=== PATIENT | male | born 1950 | race Caucasian/White ===

== ENCOUNTER 2023-09-24 00:21 | Day surgery (SDC) | payer MEDICARE, OTHER, SELFPAY ==
[2023-09-13 09:45] VITALS: BMI 30.8
--- NOTE | 2023-09-20 12:11 | SUR.PREOP ---
Patient called regarding upcoming procedure. Reviewed preop instructions, appointment times, and procedure prep. pt states he didn't receive instructions so he called the office and is to go there to get instructions.
--- NOTE | 2023-09-20 15:47 | PM.HPGS ---
History of Present Illness History of Present Illness Consent: Risks, benefits, and alternatives have been discussed and questions answered. Patient agrees to proceed with procedure. Chief complaint: Unspecified abdominal pain Narrative: Eran Avila is a 72 year old male referred for colonoscopy due to persistent abdominal discomfort, And an abnormal CT scan. We do not have the actual report on that scan. He also has history of colon polyps. Review of Systems Review of Systems: All systems reviewed & are unremarkable except as noted in HPI and below PMFSH Social History Social History Smoking packs per day: 3 Smoking cigarettes per day: 60.0 Years smoked: 30 Smoking pack-years: 90.00 Smoking status: Former smoker Tobacco type: cigarettes Substance use type: does not use Living arrangements: with family Spiritual care concerns: No Meds Home Medications and Allergies Home Medications Medication Instructions Recorded Confirmed Type fluoxetine 20 mg capsule 20 mg PO DAILY 01/19/21 09/13/23 History amitriptyline 25 mg tablet 25 mg PO DAILY 09/13/23 09/13/23 History aspirin 81 mg tablet 81 mg PO DAILY 09/13/23 09/13/23 History atorvastatin 20 mg tablet 20 mg PO DAILY 09/13/23 09/13/23 History diazepam 2 mg tablet 2 mg PO TID 09/13/23 09/13/23 History glimepiride 4 mg tablet 4 mg PO DAILY 09/13/23 09/13/23 History insulin NPH human semi-syn 100 40 unit subcut BID 09/13/23 09/13/23 History unit/mL subcutaneous suspension insulin syringe-needle U-100 0.5 09/13/23 09/13/23 History mL 31 gauge x 5/16 insulin syringe-needle U-100 1/2 09/13/23 09/13/23 History mL 31 gauge x 15/64 lisinopril 5 mg tablet 5 mg PO DAILY 09/13/23 09/13/23 History metformin 1,000 mg tablet 1,000 mg PO BID 09/13/23 09/13/23 History pantoprazole 40 mg tablet,delayed 40 mg PO DAILY 09/13/23 09/13/23 History release triamterene 75 0.5 tablet PO DAILY 09/13/23 09/13/23 History mg-hydrochlorothiazide 50 mg tablet Allergies Allergy/AdvReac Type Severity Reaction Status Date / Time bacitracin Allergy Rash Verified 09/24/23 11:29 [From Neosporin ([id number])] iodine Allergy Rash Verified 09/24/23 11:29 ketorolac Allergy Hypotension Verified 09/24/23 11:29 neomycin Allergy Rash Verified 09/24/23 11:29 [From Neosporin ([id number])] Penicillins Allergy Hives Verified 09/24/23 11:29 polymyxin B Allergy Rash Verified 09/24/23 11:29 [From Neosporin ([id number])] soap Allergy Rash Verified 09/24/23 11:29 Exam Resp: Auscultation: clear to auscultation bilaterally Cardio: Rate: regular rate Rhythm: regular rhythm GI: GI Palp: Yes Soft to palpation and No Tenderness to palpation present (GI) Assessment and Plan Assessment and plan (1) Abdominal pain: Code(s): R10.9 - Unspecified abdominal pain Status: Acute Assessment and Plan: Colonoscopy with possible biopsy or polypectomy or cautery or injection of substances.
[2023-09-24 11:31] VITALS: BP 161/80; PULSE 107; RESP 19; TEMP 36.2; O2SAT 98
[2023-09-24] MEDS: LACTATED RINGERS 1,000 ML 150 ML IV CONT (11:43)
[2023-09-24 11:48] LABS: Glucose Point of Care 261 mg/dl (65-105)
--- NOTE | 2023-09-24 11:54 | WPDANESEPPF ---
Anes - Initial Pre Proc Eval Procedure: Operation Date: 09/24/23 12:30 Proposed Procedures p Colonoscopy - Calderon Aleman MD Date/Time: 09/24/23 11:54 Surgeon: Calderon Aleman MD Pre Op Diagnosis: Unspecified abdominal pain Patient Data Age: 72 Gender: M Height: 1.83 m Weight: 98.3 kg Last Vital Signs Temp 97.2 F L 09/24/23 11:31 Pulse 107 H 09/24/23 11:31 Resp 19 09/24/23 11:31 BP 161/80 H 09/24/23 11:31 Pulse Ox 98 09/24/23 11:31 O2 Del Method Room Air 09/24/23 11:31 Allergies Allergy/AdvReac Type Severity Reaction Status Date / Time bacitracin Allergy Rash Verified 09/24/23 11:29 [From Neosporin ([id number])] iodine Allergy Rash Verified 09/24/23 11:29 ketorolac Allergy Hypotension Verified 09/24/23 11:29 neomycin Allergy Rash Verified 09/24/23 11:29 [From Neosporin ([id number])] Penicillins Allergy Hives Verified 09/24/23 11:29 polymyxin B Allergy Rash Verified 09/24/23 11:29 [From Neosporin ([id number])] soap Allergy Rash Verified 09/24/23 11:29 Home Medications Medication Instructions Recorded Confirmed Type fluoxetine 20 mg capsule 20 mg PO DAILY 01/19/21 09/13/23 History amitriptyline 25 mg tablet 25 mg PO DAILY 09/13/23 09/13/23 History aspirin 81 mg tablet 81 mg PO DAILY 09/13/23 09/13/23 History atorvastatin 20 mg tablet 20 mg PO DAILY 09/13/23 09/13/23 History diazepam 2 mg tablet 2 mg PO TID 09/13/23 09/13/23 History glimepiride 4 mg tablet 4 mg PO DAILY 09/13/23 09/13/23 History insulin NPH human semi-syn 100 40 unit subcut BID 09/13/23 09/13/23 History unit/mL subcutaneous suspension insulin syringe-needle U-100 0.5 09/13/23 09/13/23 History mL 31 gauge x 5/16 insulin syringe-needle U-100 1/2 09/13/23 09/13/23 History mL 31 gauge x 15/64 lisinopril 5 mg tablet 5 mg PO DAILY 09/13/23 09/13/23 History metformin 1,000 mg tablet 1,000 mg PO BID 09/13/23 09/13/23 History pantoprazole 40 mg tablet,delayed 40 mg PO DAILY 09/13/23 09/13/23 History release triamterene 75 0.5 tablet PO DAILY 09/13/23 09/13/23 History mg-hydrochlorothiazide 50 mg tablet Laboratory Tests 09/24/23 11:46 POC Capillary Glucose 261 H mg/dl (65-105) Patient hx anesthesia problems: none Family hx anesthesia problems: none Results Review: All pre-operative results and documents have been reviewed as part of the pre-operative evaluation. [facility] Social History Social History Smoking packs per day: 3 Smoking cigarettes per day: 60.0 Years smoked: 30 Smoking pack-years: 90.00 Smoking status: Former smoker Tobacco type: cigarettes Substance use type: does not use Living arrangements: with family Spiritual care concerns: No Anes - Eval Final PreProcedure Day of Procedure 09/24/23 11:54 Patient weight: normal Heart: regular rate and rhythm Lungs: clear to auscultation Airway: Mallampati scale class II Neurological: alert and oriented Last oral intake: >/= 8 hours ASA classification: III Emergent: no Anesthetic plan: proceed Anesthesia type and monitoring: general GIVS and standard monitoring Results Review: All pre-operative results and documents have been reviewed as part of the pre-operative evaluation. Informed Consent: The patient's anesthetic plan and its attendant risks and benefits were discussed with the patient/family/POA. Questions were solicited and answers provided to the satisfaction of the patient/family/POA.
[2023-09-24 13:13] VITALS: BP 114/69; PULSE 80; RESP 17; O2SAT 97
[2023-09-24 13:23] VITALS: BP 116/69; PULSE 82; RESP 21; O2SAT 99
[2023-09-24 13:24] LABS: Glucose Point of Care 207 mg/dl (65-105)
[2023-09-24 13:33] VITALS: BP 115/66; PULSE 80; RESP 21; O2SAT 99
== END 2023-09-24 13:47 | disposition home or self-care (01) ==
PROVIDERS: PCP Internal Medicine; Visit Provider Internal Medicine Gastroenterology
PROC: 0DJD8ZZ Inspection of Lower Intestinal Tract, Via Natural or Artificial Opening Endoscopic (ICD-10-PCS; CPT 45378; principal; 2023-09-24 12:30)
DX: R19.4 Change in bowel habit (principal); R10.32 Left lower quadrant pain; Z79.82 Long term (current) use of aspirin; Z79.84 Long term (current) use of oral hypoglycemic drugs; Z79.4 Long term (current) use of insulin; Z87.891 Personal history of nicotine dependence
CPT/HCPCS: 45378; 82948; J2704; J7120

== ENCOUNTER 2024-04-24 14:13 | Outpatient (CLI) | payer MEDICARE, OTHER, SELFPAY ==
--- NOTE | 2024-04-24 16:23 | P.PCNPFT_ITS ---
PFT Procedure Performed PFT Procedure Performed Plethysmography (Lung Vol) Diffusing Cap (DLCO) Flow Vol Loop Spirometry w/o Bronchodil PFT Interpretation This is a pulmonary function test with spirometry, plethysmography and diffusing capacity. The test was performed and results interpreted in accordance with the 2019 and 2005 ATS/ERS Task Force guidelines respectively using the Global Lung Function Initiative-2012 reference equations. Patient demonstrated good effort and cooperation. Reproducibility criteria were met. The quality of the spirometry maneuver was Grade A. Findings: Spirometry: There is decreased maximal expiratory airflow at all lung volumes with concave expiratory flow tracing. The contour the inspiratory flow tracing is normal. The FVC is 3.10 L, 69% predicted. The FEV1 is 2.09 L, 62% predicted. The FEV1: FVC ratio 67%. Plethysmography: The total lung capacity is 5.06 L, 68% predicted. The functional residual capacity is 2.48 L, 62% predicted. The residual volume is 1.96 L, 75% predicted. Diffusing capacity: The diffusing capacity unadjusted for hemoglobin and carboxyhemoglobin is 20.7, 78% predicted. The diffusing capacity adjusted for alveolar volume is 4.75, 126% predicted. Impression: There is a combined obstructive and restrictive ventilatory a bnormality. There are no guidelines to assign the severity of obstruction and restriction with a combined abnormality. In my opinion, given the mildly concave expiratory flow tracing, mildly decreased FEV1: FVC ratio and mild restrictive abnormality I would state there is a mild obstructive abnormality and a mild restrictive abnormality resulting in a moderate decrease in the FEV1. The diffusing capacity is normal. There are no prior studies for comparison
== END 2024-04-24 14:14 | disposition home or self-care (01) ==
LOC: ANHPFT 14:14
PROVIDERS: PCP Internal Medicine; Visit Provider Internal Medicine
DX: J44.9 Chronic obstructive pulmonary disease, unspecified (principal); J98.4 Other disorders of lung
CPT/HCPCS: 94375; 94726; 94729

== ENCOUNTER 2024-11-16 12:16 | Outpatient (CLI) | payer MEDICARE, OTHER, SELFPAY ==
--- NOTE | ~2024-11-16 | MR_ITS ---
EXAMINATION: MR cervical spine wo con DATE: 11/16/2024 13:23 INDICATION: Neck pain. TECHNIQUE: Magnetic resonance imaging (MRI) of the cervical spine was performed without intravenous c ontrast. COMPARISON: None FINDINGS: There is 4 degrees levocurvature of cervical spine. There is hypolordosis of cervical spine . There is 2 mm anterolisthesis of C4 on C5. Vertebral body heights are normal. There is severely dec reased disc height at C3-C4 and C4-C5 and moderately decreased disc height at C5-C6 and C6-C7. The sp inal cord signal intensity is normal. The following disc levels are specifically discussed: C2-C3: The disc does not extend beyond the endplate margin. There is mild bilateral uncovertebral zach nt osteoarthritis. There is moderate right and severe left facet joint osteoarthritis. There is mild bilateral neural foraminal stenosis. There is no central canal stenosis. C3-C4: The disc is bulging. There is severe bilateral uncovertebral joint osteoarthritis. There is se emily bilateral facet joint osteoarthritis. There is mild right and moderate left neural foraminal rochelle nosis. There is moderate central canal stenosis with ventral and dorsal indentation of the spinal cor d. C4-C5: The disc is bulging. There is severe bilateral uncovertebral joint osteoarthritis. There is se emily bilateral facet joint osteoarthritis. There is moderate right and mild left neural foraminal rochelle nosis. There is moderate central canal stenosis with ventral and dorsal indentation of the spinal cor d. C5-C6: The disc is bulging. There is severe bilateral uncovertebral joint osteoarthritis. There is mi ld bilateral facet joint osteoarthritis. There is moderate right and mild left neural foraminal steno sis. There is mild central canal stenosis. C6-C7: The disc is bulging. There is severe bilateral uncovertebral joint osteoarthritis. There is mi ld bilateral facet joint osteoarthritis. There is mild bilateral neural foraminal stenosis. There is mild central canal stenosis. C7-T1: The disc does not extend beyond the endplate margin. There is mild bilateral uncovertebral zach nt osteoarthritis. There is severe bilateral facet joint osteoarthritis. There is mild bilateral neur al foraminal stenosis. There is no central canal stenosis. IMPRESSION: 1. Severe cervical spondylosis. Reviewed, dictated and finalized at location A. E BUILDER
--- NOTE | ~2024-11-16 | MR_ITS ---
EXAMINATION: MR brain/brain stem wo con DATE: 11/16/2024 13:23 INDICATION: Neck pain. TECHNIQUE: Magnetic resonance imaging (MRI) of the brain and brainstem was performed without intraven ous contrast. COMPARISON: None. FINDINGS: There is no intracranial hemorrhage, acute infarction, or abnormal intracranial mass lesion . There are scattered areas of nonspecific increased T2-weighted signal intensity in the cerebral whi te matter and olena. The ventricles are normal in size. The mastoid air cells are normal. There is an old blowout fracture of inferior wall of left orbit. IMPRESSION: 1. Mild nonspecific cerebral white matter disease and pontine disease, which likely represents chroni c small vessel ischemic disease. Reviewed, dictated and finalized at location A. LATION INSPECTOR IMPRESSION: 1. Mild nonspecific cerebral white matter disease and pontine disease, which parvez sepulveda represents chronic small vessel ischemic disease.
--- OUTSIDE RECORDS SUMMARY | 2024-11-16 13:57 | XMS_ITS | Continuity of Care Document ---
Author Organization [facility] Address [address] [place] [address] Phone Care Team Providers Care Senior Application Programmer Name Role Phone Katarina Ramirez Unavailable Unavailable Procedures Procedure Date Office/outpatient Visit, Est Dilated Retinal Exam W Interpretation Ma Eye Exam & Treatment Dilated Retinal Exam W Interpretation Se Eye Exam & Treatment Advance Directives Directive Yes / No Effective Date File Name No Information Encounters Encounter Description Practice Location Reason(s) For Visit Diagnoses Date Provider Providers Copied on Encounter Office/outpat ient Visit, Est [facility], [address] [place] [address] [address], [place], [place], [id number], [place] tel:[phone] [facility] No Information 7-201 0 Ashley Sung [address] , [address], [place], [place], [facility], [place]. tel:[phone] [facility], [address] [place] [address] [address], [place], [place], [id number], [place] tel:[phone] [facility] No Information 4-200 8 Ashley Bray. [address] , [address], [place], [address], [place]. tel:[phone] [facility], [address], [place], [place], [id number], [place] tel:[phone] [facility] No Information 5-200 7 Ashley Moralesn. [address] , [address], [place], [address], [place]. tel:[phone] Family History Family Member Type Diagnosis Age At Onset No Information Payers Payer name Insurance type Covered republican ID Authoriza tion(s) Medicare [facility] [id number] Social History Type Description Quantity Date Captured Comments Sex Male Smoking Status No Information Chief Complaint And Reason For Visit No Information Reason For Referral Reason For Referral No Information History Of Present Illness Encounter Date Complaint History Of Prese nt Illness No Information Functional Status Date Functional Assessmen t No Information Instructions Date Instruction Additional Infor mation No Information Assessments Type Assessment Date No Information Patient Care Teams Name Effective Dates (start - stop) Status Members No Information
--- OUTSIDE RECORDS SUMMARY | 2024-11-16 13:57 | XMS_ITS | CONTINUITY OF CARE DOCUMENT ---
Author Name stefanie watts Address Unknown Organization [facility] Address [address] [place] [address] Phone [phone] Care Team Providers Care House Decorator Name Role Phone Lam GUEVARA, Melissa Unavailable [phone] SHAYNE PERRY MD Unavailable [phone] SHAYNE PERRY MD Unavailable PROBLEMS Condition Status Date Provider Notes Shortness of breath active [facility] Cardiology examination active Melissa easton MD Chest pain active Melissa Fritz MD Abnormal nuclear stress test active Kya Fritz MD Hyperlipidemia active Melissa Fritz MD GERD active Melissa Fritz MD COPD active Melissa Fritz MD Diabetes, Type 2 active Melissa Fritz MD Meniere's disease active Melissa Fritz MD ENCOUNTERS Date Type Provider Location Encounter Diag nosis - In-person encounter Office Visit Melissa Fritz MD [facility] - In-person encounter Office Visit Melissa Fritz MD [facility] Cardiology examinationChest painAbnormal nuclear stress testHyperlipidemiaGERDCO PDDiabetes, Type 2Meniere's disease VITAL SIGNS Date Observation Value Provider Body Mass Index (Ratio) 30.70 kg/m2 Charisse Fritz MD blood pressure, diastolic 88 mm[Hg] Kristopher harris Fuentes blood pressure, systolic 167 mm[Hg] Dalia donohue Fuentes oxygen saturation, oximetry 98 % [facility] Fu[facility] pulse rate 103 /min Gt Fuentes weight E&M 226.4 [lb_av] [facility] Fuentes blood pressure, cuff size regular Kristopher harris Fuentes height E&M 72 [in_i] [facility] Body Mass Index (Ratio) 30.92 kg/m2 Charisse Fritz MD oxygen saturation, oximetry 98 % Cassandra Currie pulse rate 103 /min Cassandra Currie blood pressure, diastolic 72 mm[Hg] Poncho hamraul Currie blood pressure, systolic 158 mm[Hg] Jason Currie weight E&M 228 [lb_av] Cassandra Currie height E&M 72 [in_i] Cassandra Currie respiratory rate E&M 12 /min Cassandra Currie ALLERGIES Allergy Name Onset Date Reaction Criticality Status TORDOL High Criticality active PENICILLIN High Criticality active NEOSPORIN High Criticality active IODINE High Criticality active HISTORY OF MEDICATION USE Medication Status Instructions Dates Provider Indications Com ments ranolazine 500 mg tablet extended release 12 hr active Take 1 tablet by mouth twice daily 4 Laney Carroll RN Medrol (Macho) 4 mg tablets,dose pack active Take as per package instructions 3 Josefina Lott NP prednisone 20 mg tablet active Take one tab once a day from 05/30 to 06/02 6 Darling Gotti RN prednisone 50 mg tablet active Take 1 tablet by mouth as directed Take 50mg today 05/29, then switch to 20mg dose 6 Darling Gotti RN ranolazine 500 mg tablet extended release 12 hr completed Take 1 tablet by mouth twice a day 5 - 4 Laney Carroll RN triamterene-hydro chlorothiazid 37.5-25 mg tablet active take one tab PO QD Cassandra Currie metformin 1,000 mg tablet active TAKE 1 TABLET BY MOUTH TWICE DAILY Cassandra Currie amitriptyline 25 mg tablet active Take one tab PO QD Cassandra Currie atorvastatin 20 mg tablet active TAKE 1 TABLET BY MOUTH EVERY DAY Cassandra Currie Breyna 160-4.5 mcg/actuation HFA aerosol inhaler active INHALE 2 PUFFS BY MOUTH TWICE A DAY Cassandra Currie fluoxetine 20 mg capsule active Take one tab PO QD Cassandra Currie glimepiride 4 mg tablet active take one tab PO QD Cassandra Currie insulin syringe-needle U-100 0.5 mL 31 gauge x 5/16 syringe active Take 40 units BID Cassandra Currie lisinopril 5 mg tablet active Take 1 tablet by mouth once a day Cassandra Currie pantoprazole 40 mg tablet,delayed release (DR/EC) active TAKE 1 TABLET BY MOUTH EVERY DAY Cassandra Currie triamcinolone acetonide 0.1% cream active Apply to affected area daily Cassandra Currie diazepam 2 mg tablet active Take 1 tab PO TID Cassandra Currie SOCIAL HISTORY Date Observation Value Provider smoking status Never smoker Melissa easton MD number of grandchildren Melissa Mccarty NP smoking status Never smoker Manisha riddle NP INSURANCE PROVIDERS Payer name Policy type / Coverage type Mona red libertarian ID [employer] [phone] [place] [employer] Medicare [id number] ADVANCE DIRECTIVES Name Date DISCUSSED - NO DECISION MADE TREATMENT PLAN Date Name Performer Cardiology: H is updated medication list for this problem includes: Metformin 1,000 Mg Tablet (Metformin) ..... Take 1 tablet by mouth twice daily Glimepiride 4 Mg Tablet (Glimepiride) ..... Take one tab po qd Lisinopril 5 Mg Tablet (Lisinopril) ..... Take 1 tablet by mouth once a day Melissa Fritz MD Cardiology: H is updated medication list for this problem includes: Atorvastatin 20 Mg Tablet (Atorvastatin) ..... Take 1 tablet by mouth every day Melissa Fritz MD Cardiology: P rogressively worsening SOB with exertion with minimal exertion. 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 Take 1 tablet by mouth twice daily Glimepiride 4 Mg Tablet (Glimepiride) ..... Take one tab po qd Lisinopril 5 Mg Tablet (Lisinopril) ..... Take 1 tablet by mouth once a day Manisha Mccarty NP Cardiology:Follows with PCP John Mccarty NP Cardiology: H is updated medication list for this problem includes: Pantoprazole 40 Mg Tablet,delayed Release (dr/ec) (Pantoprazole) ..... Take 1 tablet by mouth every day Manisha Mccarty NP Cardiology: H is updated medication list for this problem includes: Atorvastatin 20 Mg Tablet (Atorvastatin) ..... Take 1 tablet by mouth every day Manisha Mccarty NP Cardiology:C/o chest discomfort/flutter feeling w earing monittor to evaluate any arrythmia a bnormal stress test p maris for cardiac cath Manisha Mccarty NP Cardiology:Progressi vely worsening SOB with exertion with minimal exertion. N o edema noted a bnormal stress test p aln for left and right heart cath Manisha Mccarty NP Date Name PROTHROMBIN TIME WIT H INR LIPID PANEL CBC (INCLUDES DIFF/P LT) BASIC METABOLIC PANE L W/EGFR Stress Exercise Card iolite HISTORY OF PROCEDURES Procedure Date Procedure Name Provider Procedure Notes S tatus Complex e/m visit add on Melissa Fritz MD completed Complex e/m visit add on Melissa Fritz MD completed EKG Melissa Fritz MD complet ed BLOOD COUNT HEMOGLOBIN Claude Solano MD completed [facility] - [id number] Claude Solano MD complet ed [facility] - [address] Claude Solano MD complet ed [facility] - [address] Claude Solano MD comple [facility]
--- OUTSIDE RECORDS SUMMARY | 2024-11-16 13:57 | XMS_ITS | Data Portability ---
Author Organization [place] [facility] [employer], Main Office Address [address] [place] [address] Assessment Encounter Date Assessment Date Assessment LastModified by Organization Details LastModified Time 12/25/2022 12/25/2022 Blood work ordered diagnosis in assessment and plan have been discussed and the treatment of those problems all questions have been answered. He will follow-up in 4 months continue current therapy [email or web address] Not available 01/27/2023 17:58:52 04/23/2023 04/23/2023 CBC CMP lipid A1c continue current therapy follow-up in 4 months [email or web address] Not available 04/28/2023 21:40:37 08/27/2023 08/27/2023 CT scan abdomen and pelvis with contrast Blood work Pantoprazole Call after CT scan His chronic medical problems appear to be stable continue current therapy Not available 08/30/2023 22:19:08 Plan of Treatment Reminders Order Date Submit Date Provider Last Modified By Organization Details Last Modified Time Details Appointments None recorded. Lab CBC w/ auto diff 2022 [email or web address] [facility] (Lab), [address] [place], [address], 3 18:13:19 CMP, serum or plasma 2022 023 [facility] (Lab), [address] [place], [address], 3 19:04:10 lipase, serum or plasma 2022 023 [facility] (Lab), [address] [place], [address], 3 19:04:15 urinalysis, microscopic 2022 023 [facility] (Lab), [address] [place], [address], 3 18:37:23 HbA1c (hemoglobin A1c), blood 2022 023 [facility] (Lab), [address] [place], [address], 3 14:37:22 CBC w/ auto diff [address] (Lab), [address] [place], [address], 3 17:20:43 CMP, serum or plasma 2022 023 [facility] (Lab), [address] [place], [address], 3 21:13:23 lipid panel, serum 2022 023 [facility] (Lab), [address] [place], [address], 3 18:54:30 Referral None recorded. Procedures None recorded. Surgeries None recorded. Imaging CT, abdomen + pelvis, w/ contrast - 08/29/2023 at 730am out pt 2022 023 [facility] ([facility]), [address] [place], [address], 3 08:35:50 Medication Orders pantoprazol e 40 mg tablet,abdirahman yed release [address] [facility], [address] [facility], [place], [address], 22:18:01 Patient TargetsNo targets recorded. Patient InstructionsNo instructions recorded. Reason for Referral None Reported. Results Created Date Observation Date Name Description Value Unit Range Abnormal Flag Note LastModifiedBy Organization Detail LastModifiedTime 08/28/20 22 08/28/2022 HEMOG LOBIN A1C HA1C 7.6 % 4.0-6. 0 high Diabe andrew Scree jailyn Crite bianca: <5.7% Consi stent with absen ce of diabe andrew 5.7-6 .4% Consi stent with incre ased risk for diabe andrew (pred iabet es) >OR=6 .5% Consi stent with diabe andrew REFER ENCE: Diabe andrew Care 2016, 39(Scott ppl.1 ):s13 -s22 Not Available [facility] (Lab) [address] [place], [address], 08/28/2022 22:37:01 08/28/20 22 08/28/2022 PSA SCREE N PSA medicare screen 2.50 NG/mL 0.00-4 .00 Not Available [facility] (Lab) [address] [place], [address], 08/28/2022 18:59:55 08/28/20 22 08/28/2022 CBC/C OMPLE TE BLD COUNT W/DIF F white blood cells 11.4 x10'3 /uL 4.2-10 .8 high Not Available [facility] (Lab) [address] [place], [address], 08/28/2022 18:52:52 08/28/20 22 08/28/2022 CBC/C OMPLE TE BLD COUNT W/DIF F red blood cells 4.71 x10'6 /uL 4.10-5 .80 Not Available [facility] (Lab) [address] [place], [address], 08/28/2022 18:52:52 08/28/20 22 08/28/2022 CBC/C OMPLE TE BLD COUNT W/DIF F hemoglobin 15.1 g/dL 13.2-1 7.0 Not Available [facility] (Lab) [address] [place], [address], 08/28/2022 18:52:52 08/28/20 22 08/28/2022 CBC/C OMPLE TE BLD COUNT W/DIF F hematocrit 45.0 % 39.3-5 0.0 Not Available [facility] (Lab) [address] [place], [address], 08/28/2022 18:52:52 08/28/20 22 08/28/2022 CBC/C OMPLE TE BLD COUNT W/DIF F mean red cell volume 95.5 fL 80.0-9 7.0 Not Available [facility] (Lab) [address] [place], [address], 08/28/2022 18:52:52 08/28/20 22 08/28/2022 CBC/C OMPLE TE BLD COUNT W/DIF F mean red cell hemoglobin 32.1 pg 27.0-3 3.0 Not Available [facility] (Lab) [address] [place], [address], 08/28/2022 18:52:52 08/28/20 22 08/28/2022 CBC/C OMPLE TE BLD COUNT W/DIF F mean RBC HGB concentratio n 33.6 g/dL 31.0-3 6.0 Not Available [facility] (Lab) [address] [place], [address], 08/28/2022 18:52:52 08/28/20 22 08/28/2022 CBC/C OMPLE TE BLD COUNT W/DIF F red cell distribution width 12.9 % 11.8-1 5.5 Not Available [facility] (Lab) [address] [place], [address], 08/28/2022 18:52:52 08/28/20 22 08/28/2022 CBC/C OMPLE TE BLD COUNT W/DIF F platelets 216 x10'3 /uL 150-40 0 Not Available [facility] (Lab) [address] [place], [address], 08/28/2022 18:52:52 08/28/20 22 08/28/2022 CBC/C OMPLE TE BLD COUNT W/DIF F mean platelet volume 11.2 fL 9.0-12 .4 Not Available [facility] (Lab) [address] [place], [address], 08/28/2022 18:52:52 08/28/20 22 08/28/2022 CBC/C OMPLE TE BLD COUNT W/DIF F neutrophils 57.7 % 39.0-7 2.0 Not Available [facility] (Lab) [address] [place], [address], 08/28/2022 18:52:52 08/28/20 22 08/28/2022 CBC/C OMPLE TE BLD COUNT W/DIF F lymphocytes 29.4 % 16.0-4 7.0 Not Available [facility] (Lab) [address] [place], [address], 08/28/2022 18:52:52 08/28/20 22 08/28/2022 CBC/C OMPLE TE BLD COUNT W/DIF F monocytes 6.6 % 5.0-12 .0 Not Available [facility] (Lab) [address] [place], [address], 08/28/2022 18:52:52 08/28/20 22 08/28/2022 CBC/C OMPLE TE BLD COUNT W/DIF F eosinophils 5.3 % 1.0-7. 0 Not Available [facility] (Lab) [address] [place], [address], 08/28/2022 18:52:52 08/28/20 22 08/28/2022 CBC/C OMPLE TE BLD COUNT W/DIF F basophils 0.7 % 0.0-2. 0 Not Available [facility] (Lab) [address] [place], [address], 08/28/2022 18:52:52 08/28/20 22 08/28/2022 CBC/C OMPLE TE BLD COUNT W/DIF F immature granulocytes 0.3 % 0.00-0 .50 Not Available [facility] (Lab) [address] [place], [address], 08/28/2022 18:52:52 08/28/20 22 08/28/2022 CBC/C OMPLE TE BLD COUNT W/DIF F neutrophils, absolute count 6.60 x10'3 /uL 1.5-8. 0 Not Available [facility] (Lab) [address] [place], [address], 08/28/2022 18:52:52 08/28/20 22 08/28/2022 CBC/C OMPLE TE BLD COUNT W/DIF F lymphocytes, absolute count 3.36 x10'3 /uL 1.07-3 .43 Not Available [facility] (Lab) [address] [place], [address], 08/28/2022 18:52:52 08/28/20 22 08/28/2022 CBC/C OMPLE TE BLD COUNT W/DIF F monocytes, absolute count 0.75 x10'3 /uL 0.29-0 .99 Not Available [facility] (Lab) [address] [place], [address], 08/28/2022 18:52:52 08/28/20 22 08/28/2022 CBC/C OMPLE TE BLD COUNT W/DIF F eosinophils, absolute count 0.61 x10'3 /uL 0.02-0 .53 high Not Available [facility] (Lab) [address] [place], [address], 08/28/2022 18:52:52 08/28/20 22 08/28/2022 CBC/C OMPLE TE BLD COUNT W/DIF F basophils, absolute count 0.08 x10'3 /uL 0.01-0 .08 Not Available [facility] (Lab) [address] [place], [address], 08/28/2022 18:52:52 08/28/20 22 08/28/2022 CBC/C OMPLE TE BLD COUNT W/DIF F immature granulocytes ,absolute 0.04 x10'3 /uL 0.00-0 .05 Not Available [facility] (Lab) [address] [place], [address], 08/28/2022 18:52:52 08/28/20 22 08/28/2022 CBC/C OMPLE TE BLD COUNT W/DIF F nucleated red blood cells 0.0 % -0 Not Available [facility] (Lab) [address] [place], [address], 08/28/2022 18:52:52 08/28/20 22 08/28/2022 CBC/C OMPLE TE BLD COUNT W/DIF F NRBC# 0.00 x10'3 /uL Not Available [facility] (Lab) [address] [place], [address], 08/28/2022 18:52:52 08/28/20 22 08/28/2022 LIPID PANEL cholesterol 114 mg/dL 140-19 9 low NIH MARLI NSUS RECOM MENDA TION FOR IFRAH STERO L: ADULT CHILD LOW RISK: <200 <170 BORDE RLINE : <200- 239 ----- HIGH RISK: >240 >200 Not Available [facility] (Lab) [address] [place], [address], 08/28/2022 18:31:57 08/28/20 22 08/28/2022 LIPID PANEL triglyceride s 153 mg/dL 0-150 high NIH MARLI NSUS REPOR T RECOM MENDA TION FOR TRIGL YCERI GREG: ADULT CHILD LOW RISK: <150 ----- BODER LINE: 150-1 99 ----- HIGH RISK: >200 ----- Not Available [facility] (Lab) [address] [place], [address], 08/28/2022 18:31:57 08/28/20 22 08/28/2022 LIPID PANEL HDL cholesterol 37 mg/dL 40- low Not Available [facility] (Lab) [address] [place], [address], 08/28/2022 18:31:57 08/28/20 22 08/28/2022 LIPID PANEL LDL cholesterol, calculated 46 mg/dL 0-130 NIH MARLI NSUS REPOR T RECOM MENDA TIONS FOR LDL: ADULT CHILD LOW RISK <130 <110 (OPTI MAL LDL) <100 ----- BORDE RLINE : 130-1 59 ----- HIGH RISK: >160 >130 A TRIGL YCERI DE RESUL T >400 INVAL IDATE S THE CALCU LATIO N FOR LDL FRACT IONAT ION - THE LDL RESUL T WILL NOT BE REPOR WILLIAM. Not Available [facility] (Lab) [address] [place], [address], 08/28/2022 18:31:57 08/28/20 22 08/28/2022 COMPR EHENS HUGO METAB OLIC PANEL carbon dioxide 23 mmol/ L 22-30 Not Available [facility] (Lab) [address] [place], [address], 08/28/2022 18:31:52 08/28/20 22 08/28/2022 COMPR EHENS HUGO METAB OLIC PANEL sodium 138 mmol/ L 137-14 5 Not Available [facility] (Lab) [address] [place], [address], 08/28/2022 18:31:52 08/28/20 22 08/28/2022 COMPR EHENS HUGO METAB OLIC PANEL potassium 4.9 mmol/ L 3.5-5. 1 Not Available [facility] (Lab) [address] [place], [address], 08/28/2022 18:31:52 08/28/20 22 08/28/2022 COMPR EHENS HUGO METAB OLIC PANEL chloride 101 mmol/ L 98-107 Not Available [facility] (Lab) [address] [place], [address], 08/28/2022 18:31:52 08/28/20 22 08/28/2022 COMPR EHENS HUGO METAB OLIC PANEL anion gap 18.9 mmol/ L 14-22 Not Available [facility] (Lab) [address] [place], [address], 08/28/2022 18:31:52 08/28/20 22 08/28/2022 COMPR EHENS HUGO METAB OLIC PANEL glucose 130 mg/dL 70-99 high Not Available [facility] (Lab) [address] [place], [address], 08/28/2022 18:31:52 08/28/20 22 08/28/2022 COMPR EHENS HUGO METAB OLIC PANEL BUN 16 mg/dL 8-19 Not Available [facility] (Lab) [address] [place], [address], 08/28/2022 18:31:52 08/28/20 22 08/28/2022 COMPR EHENS HUGO METAB OLIC PANEL creatinine 1.47 mg/dL 0.66-1 .25 high Not Available [facility] (Lab) [address] [place], [address], 08/28/2022 18:31:52 08/28/20 22 08/28/2022 COMPR EHENS HUGO METAB OLIC PANEL aspartate aminotransfe rase 34 U/L 15-46 Not Available [facility] (Lab) [address] [place], [address], 08/28/2022 18:31:52 08/28/20 22 08/28/2022 COMPR EHENS HUGO METAB OLIC PANEL GFR 47 Refer ence Range : Marshall ge GFR Healt hy Adult : >60 mL/mi n/1.7 3 m2 Chron ic Kidne y Disea se: 15-60 mL/mi n/1.7 3 m2 Kidne y Failu re: <15/m L/min /1.73 m2 www.n iddk. nih.g ov The MDRD study equat ion has not been valid ated in child valeria <18 years of age; pregn ant women ; the elder ly >85 years of age; or in some racia l or ethni c subgr oups, such as Hispa nics. Outsi de the valid ated giselle eters , estim ated GFR is less accur ate, requi ring clini alejandra judgm ent on a case- by-ca se basis . Clini alejandra inter preta tion for other races and ages must be made by the clini noreen. The MDRD study equat ion has not been valid ated for the evalu ation of serum creat inine relat ed to nutri too l statu s or medic ation usage . For perso ns <18 years of age, a pedia tric GFR calcu lator is avail able on the [facility] websi te: https ://toña aranda.cheryl corea.o jami/pr ofess ional s/kdo qi/gf r_cal culat or Not Available [facility] (Lab) [address] [place], [address], 08/28/2022 18:31:52 08/28/20 22 08/28/2022 COMPR EHENS HUGO METAB OLIC PANEL alkaline phosphatase 82 U/L 38-126 Not Available [facility] (Lab) [address] [place], [address], 08/28/2022 18:31:52 08/28/20 22 08/28/2022 COMPR EHENS HUGO METAB OLIC PANEL alanine aminotransfe rase 36 U/L 0-50 Not Available [facility] (Lab) [address] [place], [address], 08/28/2022 18:31:52 08/28/20 22 08/28/2022 COMPR EHENS HUGO METAB OLIC PANEL bilirubin, total 0.70 mg/dL 0.20-1 .30 Not Available [facility] (Lab) [address] [place], [address], 08/28/2022 18:31:52 08/28/20 22 08/28/2022 COMPR EHENS HUGO METAB OLIC PANEL calcium 9.3 mg/dL 8.4-10 .2 Not Available [facility] (Lab) [address] [place], [address], 08/28/2022 18:31:52 08/28/20 22 08/28/2022 COMPR EHENS HUGO METAB OLIC PANEL total protein 7.7 g/dL 6.3-8. 2 Not Available [facility] (Lab) [address] [place], [address], 08/28/2022 18:31:52 08/28/20 22 08/28/2022 COMPR EHENS HUGO METAB OLIC PANEL albumin 4.9 g/dL 3.0-4. 4 high Not Available [facility] (Lab) [address] [place], [address], 08/28/2022 18:31:52 08/28/20 22 08/28/2022 COMPR EHENS HUGO METAB OLIC PANEL globulin 2.8 g/dL 2.6-4. 2 Not Available [facility] (Lab) [address] [place], [address], 08/28/2022 18:31:52 08/28/20 22 08/28/2022 COMPR EHENS HUGO METAB OLIC PANEL A/G ratio 1.8 ratio 1.0-2. 0 Not Available [facility] (Lab) [address] [place], [address], 08/28/2022 18:31:52 12/26/1912/25/2022 CBC/C OMPLE TE BLD COUNT W/DIF F white blood cells 13.2 x10'3 /uL 4.2-10 .8 high Not Available [facility] (Lab) [address] [place], [address], 12/25/2022 17:08:12 12/26/19 23 12/25/2022 CBC/C OMPLE TE BLD COUNT W/DIF F red blood cells 5.03 x10'6 /uL 4.10-5 .80 Not Available [facility] (Lab) [address] [place], [address], 12/25/2022 17:08:12 12/26/19 23 12/25/2022 CBC/C OMPLE TE BLD COUNT W/DIF F hemoglobin 16.0 g/dL 13.2-1 7.0 Not Available [facility] (Lab) [address] [place], [address], 12/25/2022 17:08:12 12/26/19 23 12/25/2022 CBC/C OMPLE TE BLD COUNT W/DIF F hematocrit 48.6 % 39.3-5 0.0 Not Available [facility] (Lab) [address] [place], [address], 12/25/2022 17:08:12 12/26/19 23 12/25/2022 CBC/C OMPLE TE BLD COUNT W/DIF F mean red cell volume 96.6 fL 80.0-9 7.0 Not Available [facility] (Lab) [address] [place], [address], 12/25/2022 17:08:12 12/26/19 23 12/25/2022 CBC/C OMPLE TE BLD COUNT W/DIF F mean red cell hemoglobin 31.8 pg 27.0-3 3.0 Not Available [facility] (Lab) [address] [place], [address], 12/25/2022 17:08:12 12/26/19 23 12/25/2022 CBC/C OMPLE TE BLD COUNT W/DIF F mean RBC HGB concentratio n 32.9 g/dL 31.0-3 6.0 Not Available [facility] (Lab) [address] [place], [address], 12/25/2022 17:08:12 12/26/19 23 12/25/2022 CBC/C OMPLE TE BLD COUNT W/DIF F red cell distribution width 13.2 % 11.8-1 5.5 Not Available [facility] (Lab) [address] [place], [address], 12/25/2022 17:08:12 12/26/19 23 12/25/2022 CBC/C OMPLE TE BLD COUNT W/DIF F platelets 253 x10'3 /uL 150-40 0 Not Available [facility] (Lab) [address] [place], [address], 12/25/2022 17:08:12 12/26/19 23 12/25/2022 CBC/C OMPLE TE BLD COUNT W/DIF F mean platelet volume 10.9 fL 9.0-12 .4 Not Available [facility] (Lab) [address] [place], [address], 12/25/2022 17:08:12 12/26/19 23 12/25/2022 CBC/C OMPLE TE BLD COUNT W/DIF F neutrophils 60.3 % 39.0-7 2.0 Not Available [facility] (Lab) [address] [place], [address], 12/25/2022 17:08:12 12/26/19 23 12/25/2022 CBC/C OMPLE TE BLD COUNT W/DIF F lymphocytes 26.7 % 16.0-4 7.0 Not Available [facility] (Lab) [address] [facility] [place], [address], 12/25/2022 17:08:12 12/26/19 23 12/25/2022 CBC/C OMPLE TE BLD COUNT W/DIF F monocytes 6.9 % 5.0-12 .0 Not Available [facility] (Lab) [address] [facility] [place], [address], 12/25/2022 17:08:12 12/26/19 23 12/25/2022 CBC/C OMPLE TE BLD COUNT W/DIF F eosinophils 4.8 % 1.0-7. 0 Not Available [facility] (Lab) [address] [place], [address], 12/25/2022 17:08:12 12/26/19 23 12/25/2022 CBC/C OMPLE TE BLD COUNT W/DIF F basophils 0.8 % 0.0-2. 0 Not Available [facility] (Lab) [address] [place], [address], 12/25/2022 17:08:12 12/26/19 23 12/25/2022 CBC/C OMPLE TE BLD COUNT W/DIF F immature granulocytes 0.5 % 0.00-0 .50 Not Available [facility] (Lab) [address] [place], [address], 12/25/2022 17:08:12 12/26/19 23 12/25/2022 CBC/C OMPLE TE BLD COUNT W/DIF F neutrophils, absolute count 8.00 x10'3 /uL 1.5-8. 0 Not Available [facility] (Lab) [address] [place], [address], 12/25/2022 17:08:12 12/26/19 23 12/25/2022 CBC/C OMPLE TE BLD COUNT W/DIF F lymphocytes, absolute count 3.53 x10'3 /uL 1.07-3 .43 high Not Available [facility] (Lab) [address] [place], [address], 12/25/2022 17:08:12 12/26/19 23 12/25/2022 CBC/C OMPLE TE BLD COUNT W/DIF F monocytes, absolute count 0.92 x10'3 /uL 0.29-0 .99 Not Available [facility] (Lab) [address] [place], [address], 12/25/2022 17:08:12 12/26/1912/25/2022 CBC/C OMPLE TE BLD COUNT W/DIF F eosinophils, absolute count 0.63 x10'3 /uL 0.02-0 .53 high Not Available [facility] (Lab) [address] [place], [address], 12/25/2022 17:08:12 12/26/19 23 12/25/2022 CBC/C OMPLE TE BLD COUNT W/DIF F basophils, absolute count 0.10 x10'3 /uL 0.01-0 .08 high Not Available [facility] (Lab) [address] [place], [address], 12/25/2022 17:08:12 12/26/1912/25/2022 CBC/C OMPLE TE BLD COUNT W/DIF F immature granulocytes ,absolute 0.06 x10'3 /uL 0.00-0 .05 high Not Available [facility] (Lab) [address] [place], [address], 12/25/2022 17:08:12 12/26/1912/25/2022 CBC/C OMPLE TE BLD COUNT W/DIF F nucleated red blood cells 0.0 % -0 Not Available [facility] (Lab) [address] [place], [address], 12/25/2022 17:08:12 12/26/19 23 12/25/2022 CBC/C OMPLE TE BLD COUNT W/DIF F NRBC# 0.00 x10'3 /uL Not Available [facility] (Lab) [address] [place], [address], 12/25/2022 17:08:12 12/26/19 23 12/25/2022 LIPID PANEL cholesterol 115 mg/dL 140-19 9 low NIH MARLI NSUS RECOM MENDA TION FOR IFRAH STERO L: ADULT CHILD LOW RISK: <200 <170 BORDE RLINE : <200- 239 ----- HIGH RISK: >240 >200 Not Available [facility] (Lab) [address] [place], [address], 12/25/2022 18:54:30 12/26/1912/25/2022 LIPID PANEL triglyceride s 211 mg/dL 0-150 high NIH MARLI NSUS REPOR T RECOM MENDA TION FOR TRIGL YCERI GREG: ADULT CHILD LOW RISK: <150 ----- BODER LINE: 150-1 99 ----- HIGH RISK: >200 ----- Not Available [facility] (Lab) [address] [place], [address], 12/25/2022 18:54:30 12/26/1912/25/2022 LIPID PANEL HDL cholesterol 33 mg/dL 40- low Not Available [facility] (Lab) [address] [place], [address], 12/25/2022 18:54:30 12/26/19 23 12/25/2022 LIPID PANEL LDL cholesterol, calculated 40 mg/dL 0-130 NIH MARLI NSUS REPOR T RECOM MENDA TIONS FOR LDL: ADULT CHILD LOW RISK <130 <110 (OPTI MAL LDL) <100 ----- BORDE RLINE : 130-1 59 ----- HIGH RISK: >160 >130 A TRIGL YCERI DE RESUL T >400 INVAL IDATE S THE CALCU LATIO N FOR LDL FRACT IONAT ION - THE LDL RESUL T WILL NOT BE REPOR WILLIAM. Not Available [facility] (Lab) [address] [place], [address], 12/25/2022 18:54:30 12/26/19 23 12/25/2022 COMPR EHENS HUGO METAB OLIC PANEL sodium 139 mmol/ L 137-14 5 Not Available [facility] (Lab) [address] [place], [address], 12/25/2022 21:13:23 12/26/19 23 12/25/2022 COMPR EHENS HUGO METAB OLIC PANEL potassium 6.0 mmol/ L 3.5-5. 1 high Not Available [facility] (Lab) [address] [place], [address], 12/25/2022 21:13:23 12/26/19 23 12/25/2022 COMPR EHENS HUGO METAB OLIC PANEL chloride 104 mmol/ L 98-107 Not Available [facility] (Lab) [address] [place], [address], 12/25/2022 21:13:23 12/26/19 23 12/25/2022 COMPR EHENS HUGO METAB OLIC PANEL carbon dioxide 18 mmol/ L 22-30 low Not Available [facility] (Lab) [address] [place], [address], 12/25/2022 21:13:23 12/26/19 23 12/25/2022 COMPR EHENS HUGO METAB OLIC PANEL anion gap 23.0 mmol/ L 14-22 high Not Available [facility] (Lab) [address] [place], [address], 12/25/2022 21:13:23 12/26/19 23 12/25/2022 COMPR EHENS HUGO METAB OLIC PANEL glucose 182 mg/dL 70-99 high Not Available [facility] (Lab) [address] [place], [address], 12/25/2022 21:13:23 12/26/19 23 12/25/2022 COMPR EHENS HUGO METAB OLIC PANEL BUN 29 mg/dL 8-19 high Not Available [facility] (Lab) [address] [place], [address], 12/25/2022 21:13:23 12/26/19 23 12/25/2022 COMPR EHENS HUGO METAB OLIC PANEL creatinine 1.61 mg/dL 0.66-1 .25 high Not Available [facility] (Lab) [address], [address], 12/25/2022 21:13:23 12/26/19 23 12/25/2022 COMPR EHENS HUGO METAB OLIC PANEL GFR 43 Refer ence Range : [place] ge GFR Healt hy Adult : >60 mL/mi n/1.7 3 m2 Chron ic Kidne y Disea se: 15-60 mL/mi n/1.7 3 m2 Kidne y Failu re: <15/m L/min /1.73 m2 [email or web address] ov The MDRD study equat ion has not been valid ated in child valeria <18 years of age; pregn ant women ; the elder ly >85 years of age; or in some racia l or ethni c subgr oups, such as [facility] nics. Outsi de the valid ated giselle eters , estim ated GFR is less accur ate, requi ring clini alejandra judgm ent on a case- by-ca se basis . Clini alejandra inter preta tion for other races and ages must be made by the clini noreen. The MDRD study equat ion has not been valid ated for the evalu ation of serum creat inine relat ed to nutri too l statu s or medic ation usage . For perso ns <18 years of age, a pedia tric GFR calcu lator is avail able on the [facility] websi te: https :[email or web address] w.cheryl corea.o rg/pr ofess ional s/kdo qi/gf r_cal culat or Not Available [facility] (Lab) [address] [facility] [place], [address], 12/25/2022 21:13:23 12/26/19 23 12/25/2022 COMPR EHENS HUGO METAB OLIC PANEL alkaline phosphatase 80 U/L 38-126 Not Available [facility] (Lab) [address] [place], [place], [address], 12/25/2022 21:13:23 12/26/19 23 12/25/2022 COMPR EHENS HUGO METAB OLIC PANEL alanine aminotransfe rase 44 U/L 0-50 Not Available [facility] (Lab) [address] [place], [address], 12/25/2022 21:13:23 12/26/19 23 12/25/2022 COMPR EHENS HUGO METAB OLIC PANEL aspartate aminotransfe rase 44 U/L 15-46 Not Available [facility] (Lab) [address] [place], [address], 12/25/2022 21:13:23 12/26/19 23 12/25/2022 COMPR EHENS HUGO METAB OLIC PANEL bilirubin, total 0.50 mg/dL 0.20-1 .30 Not Available [facility] (Lab) [address] [place], [address], 12/25/2022 21:13:23 12/26/19 23 12/25/2022 COMPR EHENS HUGO METAB OLIC PANEL calcium 9.6 mg/dL 8.4-10 .2 Not Available [facility] (Lab) [address] [place], [address], 12/25/2022 21:13:23 12/26/19 23 12/25/2022 COMPR EHENS HUGO METAB OLIC PANEL total protein 7.6 g/dL 6.3-8. 2 Not Available [facility] (Lab) [address] [place], [address], 12/25/2022 21:13:23 12/26/19 23 12/25/2022 COMPR EHENS HUGO METAB OLIC PANEL albumin 5.0 g/dL 3.0-4. 4 high Not Available [facility] (Lab) [address] [place], [address], 12/25/2022 21:13:23 12/26/19 23 12/25/2022 COMPR EHENS HUGO METAB OLIC PANEL globulin 2.6 g/dL 2.6-4. 2 Not Available [facility] (Lab) [address] [place], [address], 12/25/2022 21:13:23 12/26/19 23 12/25/2022 COMPR EHENS HUGO METAB OLIC PANEL A/G ratio 1.9 ratio 1.0-2. 0 Not Available [facility] (Lab) [address] [place], [address], 12/25/2022 21:13:23 12/26/1912/25/2022 HEMOG LOBIN A1C HA1C 7.2 % 4.0-6. 0 high Diabe andrew Scree jailyn Crite bianca: <5.7% Consi stent with absen ce of diabe andrew 5.7-6 .4% Consi stent with incre ased risk for diabe andrew (pred iabet es) >OR=6 .5% Consi stent with diabe andrew REFER ENCE: Diabe andrew Care 2016, 39(Scott ppl.1 ):s13 -s22 Not Available [facility] (Lab) [address] [place], [address], 12/25/2022 21:47:23 08/19/20 23 08/19/2023 CBC/C OMPLE TE BLD COUNT W/DIF F white blood cells 9.5 x10'3 /uL 4.2-10 .8 Not Available [facility] (Lab) [address] [facility] [place], [address], 08/19/2023 14:13:30 08/19/20 23 08/19/2023 CBC/C OMPLE TE BLD COUNT W/DIF F red blood cells 4.64 x10'6 /uL 4.10-5 .80 Not Available [facility] (Lab) [address] [place], [address], 08/19/2023 14:13:30 08/19/20 23 08/19/2023 CBC/C OMPLE TE BLD COUNT W/DIF F hemoglobin 15.4 g/dL 13.2-1 7.0 Not Available [facility] (Lab) [address] [place], [address], 08/19/2023 14:13:30 08/19/20 23 08/19/2023 CBC/C OMPLE TE BLD COUNT W/DIF F hematocrit 46.0 % 39.3-5 0.0 Not Available [facility] (Lab) [address] [place], [address], 08/19/2023 14:13:30 08/19/20 23 08/19/2023 CBC/C OMPLE TE BLD COUNT W/DIF F mean red cell volume 99.1 fL 80.0-9 7.0 high Not Available [facility] (Lab) [address] [place], [address], 08/19/2023 14:13:30 08/19/20 23 08/19/2023 CBC/C OMPLE TE BLD COUNT W/DIF F mean red cell hemoglobin 33.2 pg 27.0-3 3.0 high Not Available [facility] (Lab) [address] [place], [address], 08/19/2023 14:13:30 08/19/20 23 08/19/2023 CBC/C OMPLE TE BLD COUNT W/DIF F mean RBC HGB concentratio n 33.5 g/dL 31.0-3 6.0 Not Available [facility] (Lab) [address] [place], [address], 08/19/2023 14:13:30 08/19/20 23 08/19/2023 CBC/C OMPLE TE BLD COUNT W/DIF F red cell distribution width 13.1 % 11.8-1 5.5 Not Available [facility] (Lab) [address] [place], [address], 08/19/2023 14:13:30 08/19/20 23 08/19/2023 CBC/C OMPLE TE BLD COUNT W/DIF F platelets 199 x10'3 /uL 150-40 0 Not Available [facility] (Lab) [address] [place], [address], 08/19/2023 14:13:30 08/19/2008/19/2023 CBC/C OMPLE TE BLD COUNT W/DIF F mean platelet volume 11.3 fL 9.0-12 .4 Not Available [facility] (Lab) [address] [place], [address], 08/19/2023 14:13:30 08/19/20 23 08/19/2023 CBC/C OMPLE TE BLD COUNT W/DIF F neutrophils 46.1 % 39.0-7 2.0 Not Available [facility] (Lab) [address] [place], [address], 08/19/2023 14:13:30 08/19/20 23 08/19/2023 CBC/C OMPLE TE BLD COUNT W/DIF F lymphocytes 38.3 % 16.0-4 7.0 Not Available [facility] (Lab) [address] [place], [address], 08/19/2023 14:13:30 08/19/20 23 08/19/2023 CBC/C OMPLE TE BLD COUNT W/DIF F monocytes 7.5 % 5.0-12 .0 Not Available [facility] (Lab) [address] [place], [address], 08/19/2023 14:13:30 08/19/20 23 08/19/2023 CBC/C OMPLE TE BLD COUNT W/DIF F eosinophils 6.9 % 1.0-7. 0 Not Available [facility] (Lab) [address] [place], [address], 08/19/2023 14:13:30 08/19/20 23 08/19/2023 CBC/C OMPLE TE BLD COUNT W/DIF F basophils 0.8 % 0.0-2. 0 Not Available [facility] (Lab) [address] [place], [address], 08/19/2023 14:13:30 08/19/20 23 08/19/2023 CBC/C OMPLE TE BLD COUNT W/DIF F immature granulocytes 0.4 % 0.00-0 .50 Not Available [facility] (Lab) [address] [place], [address], 08/19/2023 14:13:30 08/19/20 23 08/19/2023 CBC/C OMPLE TE BLD COUNT W/DIF F neutrophils, absolute count 4.38 x10'3 /uL 1.5-8. 0 Not Available [facility] (Lab) [address] [place], [address], 08/19/2023 14:13:30 08/19/20 23 08/19/2023 CBC/C OMPLE TE BLD COUNT W/DIF F lymphocytes, absolute count 3.65 x10'3 /uL 1.07-3 .43 high Not Available [facility] (Lab) [address] [place], [address], 08/19/2023 14:13:30 08/19/20 23 08/19/2023 CBC/C OMPLE TE BLD COUNT W/DIF F monocytes, absolute count 0.71 x10'3 /uL 0.29-0 .99 Not Available [facility] (Lab) [address] [place], [address], 08/19/2023 14:13:30 08/19/20 23 08/19/2023 CBC/C OMPLE TE BLD COUNT W/DIF F eosinophils, absolute count 0.66 x10'3 /uL 0.02-0 .53 high Not Available [facility] (Lab) [address] [place], [address], 08/19/2023 14:13:30 08/19/2008/19/2023 CBC/C OMPLE TE BLD COUNT W/DIF F basophils, absolute count 0.08 x10'3 /uL 0.01-0 .08 Not Available [facility] (Lab) [address] [place], [address], 08/19/2023 14:13:30 08/19/20 23 08/19/2023 CBC/C OMPLE TE BLD COUNT W/DIF F immature granulocytes ,absolute 0.04 x10'3 /uL 0.00-0 .05 Not Available [facility] (Lab) [address] [place], [address], 08/19/2023 14:13:30 08/19/20 23 08/19/2023 CBC/C OMPLE TE BLD COUNT W/DIF F nucleated red blood cells 0.0 % -0 Not Available [facility] (Lab) [address] [place], [address], 08/19/2023 14:13:30 08/19/20 23 08/19/2023 CBC/C OMPLE TE BLD COUNT W/DIF F NRBC# 0.00 x10'3 /uL Not Available [facility] (Lab) [address] [place], [address], 08/19/2023 14:13:30 08/19/20 23 08/19/2023 COMPR EHENS HUGO METAB OLIC PANEL sodium 139 mmol/ L 137-14 5 Not Available [facility] (Lab) [address] [place], [address], 08/19/2023 15:18:32 08/19/20 23 08/19/2023 COMPR EHENS HUGO METAB OLIC PANEL potassium 4.9 mmol/ L 3.5-5. 1 Not Available [facility] (Lab) [address] [place], [address], 08/19/2023 15:18:32 08/19/20 23 08/19/2023 COMPR EHENS HUGO METAB OLIC PANEL chloride 104 mmol/ L 98-107 Not Available [facility] (Lab) [address] [place], [address], 08/19/2023 15:18:32 08/19/20 23 08/19/2023 COMPR EHENS HUGO METAB OLIC PANEL carbon dioxide 20 mmol/ L 22-30 low Not Available [facility] (Lab) [address] [place], [address], 08/19/2023 15:18:32 08/19/20 23 08/19/2023 COMPR EHENS HUGO METAB OLIC PANEL anion gap 19.9 mmol/ L 14-22 Not Available [facility] (Lab) [address] [place], [address], 08/19/2023 15:18:32 08/19/20 23 08/19/2023 COMPR EHENS HUGO METAB OLIC PANEL glucose 98 mg/dL 70-99 Not Available [facility] (Lab) [address] [place], [address], 08/19/2023 15:18:32 08/19/20 23 08/19/2023 COMPR EHENS HUGO METAB OLIC PANEL BUN 22 mg/dL 8-19 high Not Available [facility] (Lab) [address] [place], [address], 08/19/2023 15:18:32 08/19/20 23 08/19/2023 COMPR EHENS HUGO METAB OLIC PANEL creatinine 1.51 mg/dL 0.66-1 .25 high Not Available [facility] (Lab) [address] [place], [address], 08/19/2023 15:18:32 08/19/20 23 08/19/2023 COMPR EHENS HUGO METAB OLIC PANEL GFR 46 Refer ence Range : Marshall ge GFR Healt hy Adult : >60 mL/mi n/1.7 3 m2 Chron ic Kidne y Disea se: 15-60 mL/mi n/1.7 3 m2 Kidne y Failu re: <15/m L/min /1.73 m2 www.n iddk. nih.g ov The MDRD study equat ion has not been valid ated in child valeria <18 years of age; pregn ant women ; the elder ly >85 years of age; or in some racia l or ethni c subgr oups, such as Hisco nics. Outsi de the valid ated giselle eters , estim ated GFR is less accur ate, requi ring clini alejandra judgm ent on a case- by-ca se basis . Clini alejandra inter preta tion for other races and ages must be made by the clini noreen. The MDRD study equat ion has not been valid ated for the evalu ation of serum creat inine relat ed to nutri too l statu s or medic ation usage . For perso ns <18 years of age, a pedia tric GFR calcu lator is avail able on the NKF websi te: https ://toña corea.maria c farrell/pr keyur sarabia s/kdo qi/gf r_cal culat or Not Available [facility] (Lab) [address] [place], [address], 08/19/2023 15:18:32 08/19/20 23 08/19/2023 COMPR EHENS HUGO METAB OLIC PANEL alkaline phosphatase 81 U/L 38-126 Not Available [facility] (Lab) [address] [place], [address], 08/19/2023 15:18:32 08/19/20 23 08/19/2023 COMPR EHENS HUGO METAB OLIC PANEL alanine aminotransfe rase 37 U/L 0-50 Not Available [facility] (Lab) [address] [place], [address], 08/19/2023 15:18:32 08/19/20 23 08/19/2023 COMPR EHENS HUGO METAB OLIC PANEL aspartate aminotransfe rase 39 U/L 15-46 Not Available [facility] (Lab) [address] [place], [address], 08/19/2023 15:18:32 08/19/20 23 08/19/2023 COMPR EHENS HUGO METAB OLIC PANEL bilirubin, total 0.70 mg/dL 0.20-1 .30 Not Available [facility] (Lab) [address] [place], [address], 08/19/2023 15:18:32 08/19/20 23 08/19/2023 COMPR EHENS HUGO METAB OLIC PANEL calcium 9.9 mg/dL 8.4-10 .2 Not Available [facility] (Lab) [address] [place], [address], 08/19/2023 15:18:32 08/19/20 23 08/19/2023 COMPR EHENS HUGO METAB OLIC PANEL total protein 7.4 g/dL 6.3-8. 2 Not Available [facility] (Lab) [address] [place], [address], 08/19/2023 15:18:32 08/19/20 23 08/19/2023 COMPR EHENS HUGO METAB OLIC PANEL albumin 4.7 g/dL 3.0-4. 4 high Not Available [facility] (Lab) [address] [place], [address], 08/19/2023 15:18:32 08/19/20 23 08/19/2023 COMPR EHENS HUGO METAB OLIC PANEL globulin 2.7 g/dL 2.6-4. 2 Not Available [facility] (Lab) [address] [place], [address], 08/19/2023 15:18:32 08/19/20 23 08/19/2023 COMPR EHENS HUGO METAB OLIC PANEL A/G ratio 1.7 ratio 1.0-2. 0 Not Available [facility] (Lab) [address] [place], [address], 08/19/2023 15:18:32 08/19/20 23 08/19/2023 LIPID PANEL cholesterol 107 mg/dL 140-19 9 low NIH MARLI NSUS RECOM MENDA TION FOR IFRAH STERO L: ADULT CHILD LOW RISK: <200 <170 BORDE RLINE : <200- 239 ----- HIGH RISK: >240 >200 Not Available [facility] (Lab) [address] [place], [address], 08/19/2023 15:18:35 08/19/20 23 08/19/2023 LIPID PANEL triglyceride s 300 mg/dL 0-150 high NIH MARLI NSUS REPOR T RECOM MENDA TION FOR TRIGL YCERI GREG: ADULT CHILD LOW RISK: <150 ----- BODER LINE: 150-1 99 ----- HIGH RISK: >200 ----- Not Available [facility] (Lab) [address] [place], [address], 08/19/2023 15:18:35 08/19/20 23 08/19/2023 LIPID PANEL HDL cholesterol 26 mg/dL 40- low Not Available [facility] (Lab) [address] [place], [address], 08/19/2023 15:18:35 08/19/20 23 08/19/2023 LIPID PANEL LDL cholesterol, calculated 21 mg/dL 0-130 NIH MARLI NSUS REPOR T RECOM MENDA TIONS FOR LDL: ADULT CHILD LOW RISK <130 <110 (OPTI MAL LDL) <100 ----- BORDE RLINE : 130-1 59 ----- HIGH RISK: >160 >130 A TRIGL YCERI DE RESUL T >400 INVAL IDATE S THE CALCU LATIO N FOR LDL FRACT IONAT ION - THE LDL RESUL T WILL NOT BE REPOR WILLIAM. Not Available [facility] (Lab) [address] [place], [address], 08/19/2023 15:18:35 08/19/2008/19/2023 HEMOG LOBIN A1C HA1C 6.7 % 4.0-6. 0 high Diabe andrew Scree jailyn Crite bianca: <5.7% Consi stent with absen ce of diabe andrew 5.7-6 .4% Consi stent with incre ased risk for diabe andrew (pred iabet es) >OR=6 .5% Consi stent with diabe andrew REFER ENCE: Diabe andrew Care 2016, 39(Scott ppl.1 ):s13 -s22 Not Available [facility] (Lab) [address] [place], [address], 08/19/2023 17:25:16 08/27/20 23 08/27/2023 CBC/C OMPLE TE BLD COUNT W/DIF F white blood cells 11.7 x10'3 /uL 4.2-10 .8 high Not Available [facility] (Lab) [address] [place], [address], 08/27/2023 18:12:20 08/27/20 23 08/27/2023 CBC/C OMPLE TE BLD COUNT W/DIF F red blood cells 4.91 x10'6 /uL 4.10-5 .80 Not Available [facility] (Lab) [address] [place], [address], 08/27/2023 18:12:20 08/27/20 23 08/27/2023 CBC/C OMPLE TE BLD COUNT W/DIF F hemoglobin 16.0 g/dL 13.2-1 7.0 Not Available [facility] (Lab) [address] [facility] [place], [address], 08/27/2023 18:12:20 08/27/20 23 08/27/2023 CBC/C OMPLE TE BLD COUNT W/DIF F hematocrit 48.3 % 39.3-5 0.0 Not Available [facility] (Lab) [address] [facility] [place], [address], 08/27/2023 18:12:20 08/27/20 23 08/27/2023 CBC/C OMPLE TE BLD COUNT W/DIF F mean red cell volume 98.4 fL 80.0-9 7.0 high Not Available [facility] (Lab) [address] [place], [address], 08/27/2023 18:12:20 08/27/20 23 08/27/2023 CBC/C OMPLE TE BLD COUNT W/DIF F mean red cell hemoglobin 32.6 pg 27.0-3 3.0 Not Available [facility] (Lab) [address] [place], [address], 08/27/2023 18:12:20 08/27/20 23 08/27/2023 CBC/C OMPLE TE BLD COUNT W/DIF F mean RBC HGB concentratio n 33.1 g/dL 31.0-3 6.0 Not Available [facility] (Lab) [address] [place], [address], 08/27/2023 18:12:20 08/27/20 23 08/27/2023 CBC/C OMPLE TE BLD COUNT W/DIF F red cell distribution width 13.0 % 11.8-1 5.5 Not Available [facility] (Lab) [address] [place], [address], 08/27/2023 18:12:20 08/27/20 23 08/27/2023 CBC/C OMPLE TE BLD COUNT W/DIF F platelets 243 x10'3 /uL 150-40 0 Not Available [facility] (Lab) [address] [place], [address], 08/27/2023 18:12:20 08/27/20 23 08/27/2023 CBC/C OMPLE TE BLD COUNT W/DIF F mean platelet volume 11.0 fL 9.0-12 .4 Not Available [facility] (Lab) [address] [place], [address], 08/27/2023 18:12:20 08/27/20 23 08/27/2023 CBC/C OMPLE TE BLD COUNT W/DIF F neutrophils 62.3 % 39.0-7 2.0 Not Available [facility] (Lab) [address] [place], [address], 08/27/2023 18:12:20 08/27/20 23 08/27/2023 CBC/C OMPLE TE BLD COUNT W/DIF F lymphocytes 23.6 % 16.0-4 7.0 Not Available [facility] (Lab) [address] [place], [address], 08/27/2023 18:12:20 08/27/20 23 08/27/2023 CBC/C OMPLE TE BLD COUNT W/DIF F monocytes 7.4 % 5.0-12 .0 Not Available [facility] (Lab) [address] [facility] [place], [address], 08/27/2023 18:12:20 08/27/20 23 08/27/2023 CBC/C OMPLE TE BLD COUNT W/DIF F eosinophils 5.3 % 1.0-7. 0 Not Available [facility] (Lab) [address] [place], [address], 08/27/2023 18:12:20 08/27/20 23 08/27/2023 CBC/C OMPLE TE BLD COUNT W/DIF F basophils 0.8 % 0.0-2. 0 Not Available [facility] (Lab) [address] [facility] [place], [address], 08/27/2023 18:12:20 08/27/20 23 08/27/2023 CBC/C OMPLE TE BLD COUNT W/DIF F immature granulocytes 0.6 % 0.00-0 .50 high Not Available [facility] (Lab) [address] [place], [address], 08/27/2023 18:12:20 08/27/20 23 08/27/2023 CBC/C OMPLE TE BLD COUNT W/DIF F neutrophils, absolute count 7.32 x10'3 /uL 1.5-8. 0 Not Available [facility] (Lab) [address] [place], [address], 08/27/2023 18:12:20 08/27/20 23 08/27/2023 CBC/C OMPLE TE BLD COUNT W/DIF F lymphocytes, absolute count 2.77 x10'3 /uL 1.07-3 .43 Not Available [facility] (Lab) [address] [place], [address], 08/27/2023 18:12:20 08/27/20 23 08/27/2023 CBC/C OMPLE TE BLD COUNT W/DIF F monocytes, absolute count 0.87 x10'3 /uL 0.29-0 .99 Not Available [facility] (Lab) [address] [place], [address], 08/27/2023 18:12:20 08/27/20 23 08/27/2023 CBC/C OMPLE TE BLD COUNT W/DIF F eosinophils, absolute count 0.62 x10'3 /uL 0.02-0 .53 high Not Available [facility] (Lab) [address] [place], [address], 08/27/2023 18:12:20 08/27/20 23 08/27/2023 CBC/C OMPLE TE BLD COUNT W/DIF F basophils, absolute count 0.09 x10'3 /uL 0.01-0 .08 high Not Available [facility] (Lab) [address] [place], [address], 08/27/2023 18:12:20 08/27/20 23 08/27/2023 CBC/C OMPLE TE BLD COUNT W/DIF F immature granulocytes ,absolute 0.07 x10'3 /uL 0.00-0 .05 high Not Available [facility] (Lab) [address] [place], [address], 08/27/2023 18:12:20 08/27/20 23 08/27/2023 CBC/C OMPLE TE BLD COUNT W/DIF F nucleated red blood cells 0.0 % -0 Not Available [facility] (Lab) [address] [place], [address], 08/27/2023 18:12:20 08/27/20 23 08/27/2023 CBC/C OMPLE TE BLD COUNT W/DIF F NRBC# 0.00 x10'3 /uL Not Available [facility] (Lab) [address] [place], [address], 08/27/2023 18:12:20 08/27/20 23 08/27/2023 URINE MICRO SCOPI C EXAM white blood cells NONE per_h pf 0-8 Not Available [facility] (Lab) [address] [place], [address], 08/27/2023 18:37:23 08/27/20 23 08/27/2023 URINE MICRO SCOPI C EXAM red blood cells NONE per_h pf 0-4 Not Available [facility] (Lab) [address] [place], [address], 08/27/2023 18:37:23 08/27/20 23 08/27/2023 URINE MICRO SCOPI C EXAM bacteria NONE per_h pf Not Available [facility] (Lab) [address] [place], [address], 08/27/2023 18:37:23 08/27/20 23 08/27/2023 URINE MICRO SCOPI C EXAM epithelial cells PRESEN T abnormal Not Available [facility] (Lab) [address] [place] [address], [address], 08/27/2023 18:37:23 08/27/20 23 08/27/2023 URINE MICRO SCOPI C EXAM mucus NONE Not Available [facility] (Lab) [address] [place] [address], [address], 08/27/2023 18:37:23 08/27/20 23 08/27/2023 URINE MICRO SCOPI C EXAM casts NONE none seen- Not Available [facility] (Lab) [address] [place] [address], [address], 08/27/2023 18:37:23 08/27/20 23 08/27/2023 URINE MICRO SCOPI C EXAM crystals NONE none seen- Not Available [facility] (Lab) [address] [place] [address], [address], 08/27/2023 18:37:23 08/27/20 23 08/27/2023 URINE MICRO SCOPI C EXAM yeast NONE SEEN none seen- Not Available [facility] (Lab) [address] [place] [address], [address], 08/27/2023 18:37:23 08/27/20 23 08/27/2023 URINE MICRO SCOPI C EXAM squamous epithelial cells OCCASI ONAL abnormal Not Available [facility] (Lab) [address] [place], [address], 08/27/2023 18:37:23 08/27/20 23 08/27/2023 COMPR EHENS HUGO METAB OLIC PANEL sodium 138 mmol/ L 137-14 5 Not Available [facility] (Lab) [address] [place], [address], 08/27/2023 19:04:10 08/27/20 23 08/27/2023 COMPR EHENS HUGO METAB OLIC PANEL potassium 5.0 mmol/ L 3.5-5. 1 Not Available [facility] (Lab) [address] [facility] [place], [address], 08/27/2023 19:04:10 08/27/20 23 08/27/2023 COMPR EHENS HUGO METAB OLIC PANEL chloride 100 mmol/ L 98-107 Not Available [facility] (Lab) [address] [place], [address], 08/27/2023 19:04:10 08/27/20 23 08/27/2023 COMPR EHENS HUGO METAB OLIC PANEL carbon dioxide 23 mmol/ L 22-30 Not Available [facility] (Lab) [address] [place], [address], 08/27/2023 19:04:10 08/27/20 23 08/27/2023 COMPR EHENS HUGO METAB OLIC PANEL anion gap 20.0 mmol/ L 14-22 Not Available [facility] (Lab) [address] [place], [address], 08/27/2023 19:04:10 08/27/20 23 08/27/2023 COMPR EHENS HUGO METAB OLIC PANEL glucose 175 mg/dL 70-99 high Not Available [facility] (Lab) [address] [place], [address], 08/27/2023 19:04:10 08/27/20 23 08/27/2023 COMPR EHENS HUGO METAB OLIC PANEL BUN 15 mg/dL 8-19 Not Available [facility] (Lab) [address] [place], [address], 08/27/2023 19:04:10 08/27/20 23 08/27/2023 COMPR EHENS HUGO METAB OLIC PANEL creatinine 1.36 mg/dL 0.66-1 .25 high Not Available [facility] (Lab) [address] [place], [address], 08/27/2023 19:04:10 08/27/20 23 08/27/2023 COMPR EHENS HUGO METAB OLIC PANEL GFR 52 Refer ence Range : [place] ge GFR Healt hy Adult : >60 mL/mi n/1.7 3 m2 Chron ic Kidne y Disea se: 15-60 mL/mi n/1.7 3 m2 Kidne y Failu re: <15/m L/min /1.73 m2 [email or web address] ov The MDRD study equat ion has not been valid ated in child valeria <18 years of age; pregn ant women ; the elder ly >85 years of age; or in some racia l or ethni c subgr oups, such as Ginette nics. Outsi de the valid ated giselle eters , estim ated GFR is less accur ate, requi ring clini alejandra judgm ent on a case- by-ca se basis . Clini alejandra inter preta tion for other races and ages must be made by the clini noreen. The MDRD study equat ion has not been valid ated for the evalu ation of serum creat inine relat ed to nutri too l statu s or medic ation usage . For perso ns <18 years of age, a pedia tric GFR calcu lator is avail able on the F websi te: https ://toña corea.o rg/pr ofess ional s/kdo qi/gf r_cal culat or Not Available [facility] (Lab) [address] [place], [address], 08/27/2023 19:04:10 08/27/20 23 08/27/2023 COMPR EHENS HUGO METAB OLIC PANEL alkaline phosphatase 69 U/L 38-126 Not Available [facility] (Lab) [address], [address], 08/27/2023 19:04:10 08/27/20 23 08/27/2023 COMPR EHENS HUGO METAB OLIC PANEL alanine aminotransfe rase 40 U/L 0-50 Not Available [facility] (Lab) [address] [place], [address], 08/27/2023 19:04:10 08/27/20 23 08/27/2023 COMPR EHENS HUGO METAB OLIC PANEL aspartate aminotransfe rase 38 U/L 15-46 Not Available [facility] (Lab) [address] [place], [address], 08/27/2023 19:04:10 08/27/20 23 08/27/2023 COMPR EHENS HUGO METAB OLIC PANEL bilirubin, total 0.60 mg/dL 0.20-1 .30 Not Available [facility] (Lab) [address] [place], [address], 08/27/2023 19:04:10 08/27/20 23 08/27/2023 COMPR EHENS HUGO METAB OLIC PANEL calcium 10.1 mg/dL 8.4-10 .2 Not Available [facility] (Lab) [address] [place], [address], 08/27/2023 19:04:10 08/27/20 23 08/27/2023 COMPR EHENS HUGO METAB OLIC PANEL total protein 8.0 g/dL 6.3-8. 2 Not Available [facility] (Lab) [address] [place], [address], 08/27/2023 19:04:10 08/27/20 23 08/27/2023 COMPR EHENS HUGO METAB OLIC PANEL albumin 4.9 g/dL 3.0-4. 4 high Not Available [facility] (Lab) [address] [place], [address], 08/27/2023 19:04:10 08/27/20 23 08/27/2023 COMPR EHENS HUGO METAB OLIC PANEL globulin 3.1 g/dL 2.6-4. 2 Not Available [facility] (Lab) [address] [place], [address], 08/27/2023 19:04:10 08/27/20 23 08/27/2023 COMPR EHENS HUGO METAB OLIC PANEL A/G ratio 1.6 ratio 1.0-2. 0 Not Available [facility] (Lab) [address] [place], [address], 08/27/2023 19:04:10 08/27/20 23 08/27/2023 LIPAS E SERUM lipase 207 U/L 23-300 Not Available [facility] (Lab) [address] [place], [address], 08/27/2023 19:04:15 09/07/20 23 09/06/2023 CT, abdom en + pelvi s, w/ contr ast [facility] [address] [place], [place] [id number] Patien t Name: NEENA DELGADO Access ion #: [id number] Sex: M : 1950 9 Dictat ed By: Ruby Damico Attend ing Physic kriss: ALEXIS ESTRADA Orderbanner Physic kriss: ALEXIS ESTRADA Exam Date: 2022 13:12 PM Exam Name: CT ABDOME N PELVIS W Admitt ing Diagno sis(es ): Exam: CT abdome n and pelvis with contra st dated 2022 1:12 PM HEALTH INSPECTOR Histor y: 72 years old Male with abdomi nal pain Compar bryant Study: None availa ble at time of dictat ion. TECHNI QUE: A digita l lawn mower image was obtain ed. During the uneven tful, intrav enous admini strati on of contra st materi al, multis lice data acquis ition was obtain ed throug h the abdome n and pelvis . The data set was subseq uently recons tructe d into axial images . Images were review ed on a work statio n using a combin ation of axial and multip lanar using a variet y of window levels and settin gs. RADIAT ION DOSE: DLP 1111mG y.cm; CTDI 20.1 mGy. FINDIN GS: Visual ized lower thorax : Mild scarri ng with periph eral inters titial opacit ies in the right lung. Calcif ied granul omas are visual ized. Liver: Liver is normal in morpho logy and attenu ation. No suspic ious lesion s are seen. Gallbl adder: No eviden ce of cholel ithias is or gallbl adder wall thicke jailyn. Biliar y system : There is no intrah epatic or extrah epatic bile duct dilata tion. Spleen : Spleni c calcif icatio ns are visual ized likely sequel a of prior granul omatou s diseas e. Pancre as: Normal in morpho logy and attenu ation. Page 1 [facility] [place] [phone] Patien t Name: NEENA DELGADO Access ion #: [id number] Sex: M : 1950 9 Dictat ed By: Ruby Damico Attend ing Physic kriss: ORLANDO VALDIVIA Orderi ng Physic kriss: ALEXIS ESTRADA Exam Date: 2022 13:12 PM Exam Name: CT ABDOME N PELVIS W Admitt ing Diagno sis(es ): Adrena l glands : Normal in morpho logy and attenu ation. Kidney s: The kidney s enhanc e symmet ricall y and are withou t suspic ious abnorm ality. Subcen timete r low-de nsity lesion s in the bilate ral kidney s are too small to charac terize . As a 3 mm nonobs tructi ve left renal calcif icatio n. Urinar y tract: The ureter s, as visual ized, are normal in course and calibe r. There is circum ferent ial wall thicke jailyn of the urinar y bladde r. Pelvis : Prosta te is enlarg ed and measur es 6 cm. Perito neum: No signif icant ascite s. No pneumo perito neum. GI tract: Enteri c contra st is visual ized. Small hiatal hernia . No bowel wall thicke jailyn or dilata tion. Lymph nodes: There are no abnorm ally enlarg ed intra- abdomi nal or pelvic lymph nodes. Vascul ar struct ures:T he aorta and iliac vessel s are normal in course and calibe r. Muscul oskele martine: No acute osseou s abnorm ality. Diffus e osteop enia. IMPRES DORIS: 1. Prosta tomega ly. Correl ate with PSA. 2. Circum ferent ial wall thicke jailyn of the urinar y bladde r which may repres ent cystit is or chroni c bladde r outlet obstru ction. Correl ate with urinal ysis. 3. Small hiatal hernia . All CT scans at this medica l facili ty are perfor med using dose modula tion techni ques as approp riate to a perfor med exam includ ing the follow ing: Automa william exposu re contro l was utiliz ed; adjust ment of the MA and/or KV accord ing to patien t size; and use of iterat hugo recons tructi on techni que. Electr onical ly Signed by: Ruby Damico at 2022 07:34: 33 AM Page [email or web address] [facility] (Imaging) [address] [place], [address], 09/10/2023 15:30:26 04/02/20 24 04/02/2024 XR, chest , 2 view [facility] [address] [place] [address] Patien t Name: NEENA DELGADO ion #: [id number] Sex: M : 1950 7 Dictat ed By: Star Dykes Attend ing Physic kriss: ALEXIS ESTRADA Orderi ng Physic kriss: ALEXIS ESTRADA Exam Date: 2023 08:35 AM Exam Name: XR CHEST 2V Admitt ing Diagno sis(es ): XR CHEST 2V CLINIC AL HISTOR Y: Dyspne a COMPAR BRYANT: XR CHEST 2V on 2020 TECHNI QUE: Fronta l and latera l view of the chest was obtain ed FINDIN GS: Lines and Tubes: None Lungs: No focal consol idatio n. Pleura : No effusi on. No pneumo thorax . Cardio medias tinal contou rs: Unrema rkable Bones: No acute osseou s abnorm ality. IMPRES DORIS: No acute cardio pulmon julieta diseas e. Electr onical ly Signed by: Star Dykes at 2023 08:58: 08 AM Page [email or web address] [facility] ([facility]) [address] [place], [address], 04/05/2024 10:58:45 Result Notes None recorded. Problems Name Problem SNOMED Code Status Onset Date Resolution Date Notes Provider Name and Address Organization Details Recorded Time M ni re's disease 85985324 Active Not Available [facility] 3 08:05:58 Chronic obstructiv e pulmonary disease 38420900 Active Not Available [facility] 3 08:05:58 Respirator y symptom 046310518 Active Not Available [facility] 3 08:05:58 Pure hyperchole sterolemia 345682458 Active Not Available [facility] 3 08:05:58 Eruption 028831782 Completed Not Available [facility] 3 01:04:14 Type 2 diabetes mellitus without complicati on 364518886 Active Not Available [facility] 3 08:05:58 Bronchitis 10099172 Completed Not Available [facility] 3 01:04:14 Mononeurit is 34273342 Completed Not Available [facility] 3 01:04:15 Neuropathy 821524854 Active 2021 Not Available [facility] 3 08:05:58 Hypothyroi dism 79196327 Active 2016 Not Available [facility] 3 08:05:58 Cough 44076745 Completed Not Available [facility] 3 01:04:15 Upper respirator y infection 51590096 Active 2021 Not Available [facility] 3 08:05:58 Essential hypertensi on 14107777 Active 2021 Not Available [facility] 3 08:05:58 Dyspnea on exertion 66084603 Completed Not Available [facility] 3 01:04:15 Increased liver function 42314434 Active Not Available [facility] 3 08:05:58 Polyp of colon 68303040 Active Not Available [facility] 3 08:05:58 COVID-19 057122762 Active 2021 Not Available [facility] 3 08:05:58 Abdominal pain 02185660 Active 2022 Not Available [facility] 3 08:05:58 Large prostate 167118573 Active 2022 Denisha Aguero RN [facility], [place] [facility] [employer] [facility] 3 15:32:04 Problem Notes None recorded. Procedures Surgical History Date Name Laterality Status Provider Name and Address Organization Details Recorded Time 5 Colonoscopy completed Not Available [facility] 11/22/19 00:57:26 7 Colonoscopy completed Not Available [facility] 11/22/19 00:57:26 Arthroscopy completed Not Available [facility] 11/21/2022 00:57:26 Imaging Results Imaging Date Name Status LastModified by [facility] Details LastModified Time 09/06/2023 CT, abdomen + pelvis, w/ contrast completed [email or web address] [facility] (Imaging) [address] [place], [address], 09/10/2023 15:30:26 04/02/2024 XR, chest, 2 view completed [email or web address] [facility] (Imaging) [address] [place], [address], 04/05/2024 10:58:45 Procedure Notes None recorded. Medical Equipment None Reported. Allergies Allergen ID Allergen Name Allergen Category Reaction Reaction Severity Criticality Documentation Date Start Date Code Code System Note Provider Name and Address Organization Details Recorded Time 1701 Toradol medicatio n chest pain Not available Not available 11/21/2022 06575 RxNorm Not Available [facility] 3 01:13:07 1703 Product containin g penicilli n (product) medicatio n other Not available Not available 11/21/2022 23491 8001 SNOMED swell ing Not Available [facility] 3 01:13:07 1704 bacitraci n / neomycin / polymyxin B medicatio n hives Not available Not available 11/21/2022 07875 9 RxNorm Not Available [facility] 3 01:13:07 1705 iodine medicatio n hives Not available Not available 11/21/2022 5933 RxNorm Not Available [facility] 3 01:13:08 Medications Name Sig Start Date Stop Date Status Note LastModified by Organization Details LastModified Time relion/tr ue micro lanc 33g mis USE 1 TO CHECK GLUCOSE TWICE DAILY active Not Available Not Available No t Available doxycycli ne hyclate 100 mg capsule Take 1 capsule twice a day by oral route for 10 days. active Not Available Not Available No t Available atorvasta tin 20 mg tablet Take 1 tablet by mouth once daily active Not Available Not Available No t Available azithromy aiden 250 mg tablet TAKE 2 TABLETS (500 MG) BY ORAL ROUTE ONCE DAILY FOR 1 DAY THEN 1 TABLET (250 MG) BY ORAL ROUTE ONCE DAILY FOR 4 DAYS 08/28 completed Not Available Not Available Not Available Novolin N NPH U-100 Insulin isophane 100 unit/mL subcutane ous susp Inject 40 units twice a day by subcutan eous route. active Not Available Not Available No t Available hydrocodo ne 5 mg-acetam inophen 325 mg tablet TAKE ONE TABLET BY MOUTH 4 TIMES DAILY NEEDED 04/28 completed Not Available Not Available Not Available prednison e 20 mg tablet Take 2 tablets every day by oral route for 5 days. active Not Available Not Available No t Available ciproflox acin 500 mg tablet Take 1 tablet twice a day by oral route for 10 days. 12/23 completed Not Available Not Available Not Available amitripty line 25 mg tablet Take 1 tablet by mouth once daily active Not Available Not Available No t Available PhotoShelterTouch Ultra Test strips USE 1 STRIP TO CHECK GLUCOSE TWICE DAILY NEEDED 12/25 completed Not Available Not Available Not Available diazepam 2 mg tablet Take 1 tablet by mouth three times daily as needed 2023 active Not Available Not Available Not Avai lable gemfibroz il 600 mg tablet TAKE 1 TABLET BY MOUTH TWICE DAILY active Not Available Not Available No t Available pantopraz ole 40 mg tablet,de layed release Take 1 tablet by mouth once daily active Not Available Not Available No t Available metformin 1,000 mg tablet TAKE 1 TABLET BY MOUTH TWICE DAILY active Not Available Not Available No t Available glimepiri de 4 mg tablet Take 1 tablet by mouth once daily active Not Available Not Available No t Available prednison e 50 mg tablet TAKE 1 TABLET BY MOUTH AT MIDNIGHT , 6:00 AM, AND 12:00 PM ON 09/06 active Not Available Not Available No t Available clonazepa m 2 mg tablet TAKE ONE TABLET BY MOUTH THREE TIMES DAILY 11/27 completed Not Available Not Available Not Available Elimite 5 % topical cream Apply 1 applicat ion by topical route as directed . 02/01 completed Not Available Not Available Not Available gabapenti n 300 mg capsule TAKE 1 CAPSULE BY MOUTH ONCE DAILY AT BEDTIME active Not Available Not Available No t Available aspirin 81 mg chewable tablet Chew 1 tablet every day by oral route. 2012 active Not Available Not Available Not Avai lable insulin syringe U-100 with needle 0.3 mL 31 gauge x 02/05 active Not Available Not Available Not Available Euthyrox 50 mcg tablet TAKE 1 TABLET BY MOUTH ONCE DAILY active Not Available Not Available No t Available lisinopri l 5 mg tablet Take 1 tablet by mouth once daily active Not Available Not Available No t Available triamtere ne 75 mg-hydroc hlorothia zide 50 mg tablet TAKE 1/2 (ONE-MALIK F) TABLET BY MOUTH ONCE DAILY active Not Available Not Available No t Available fluoxetin e 20 mg capsule Take 1 capsule by mouth once daily 2023 active Not Available Not Available Not Avai lable One Touch Ultra Bonus Pack test strips accu chk bid and prn 11/14 completed Not Available Not Available Not Available insulin syringe U-100 with needle 0.5 mL 31 gauge x 5/16 USE 1 SYRINGE TWICE DAILY DIRECTED 2023 active Not Available Not Available Not Avai lable Pneumovax -23 25 mcg/0.5 mL injection syringe PHARMACI ST ADMINIST ERED IMMUNIZA TION ADMINIST ERED AT TIME OF DISPENSI NG 12/05 completed Not Available Not Available Not Available BD Ultra-Fin e Mini Pen Needle 31 gauge x 3/16 04/01 completed Not Available Not Available Not Available meclizine 04/29 completed Not Available Not Available Not Available BD Ultra-Fin e Short Pen Needle 31 gauge x 5/16 USE ONE PEN NEEDLE TWICE DAILY DIRECTED 12/05 completed Not Available Not Available Not Available ProAir HFA 90 mcg/actua tion aerosol inhaler 12/05 completed Not Available Not Available Not Available Lantus Solostar U-100 Insulin 100 unit/mL (3 mL) subcutane ous pen INJECT 34 UNITS SUBCUTAN EOUSLY TWICE DAILY active Not Available Not Available No t Available Prevnar 13 (PF) 0.5 mL intramusc ular syringe PHARMACI ST ADMINIST ERED IMMUNIZA TION ADMINIST ERED AT TIME OF DISPENSI NG 08/31 completed Not Available Not Available Not Available Suprep Bowel Prep Kit 17.5 gram-3.13 gram-1.6 gram oral solution 05/02 completed Not Available Not Available Not Available Bydureon 2 mg subcutane ous extended release suspensio n INJECT ONE VIAL ONCE A WEEK 08/27 completed Not Available Not Available Not Available insulin syringe U-100 with needle 0.3 mL 31 gauge x 15/64 USE TWICE DAILY DIRECTED active Not Available Not Available No t Available insulin syringe U-100 with needle 1/2 mL 31 gauge x 15/64 USE TWICE DAILY DIRECTED 2022 active Not Available Not Available Not Avai lable cinnamon bark-[employer] traffic controller mium picolinat e 500 mg-100 mcg capsule Take by oral route. 12/15 completed Not Available Not Available Not Available TRUEplus Lancets 33 gauge USE TO CHECK GLUCOSE TWICE DAILY active Not Available Not Available No t Available TRUEplus Lancets 26 gauge USE ONE LANCET TO CHECK GLUCOSE TWICE DAILY--- DX: E11.9 04/01 completed Not Available Not Available Not Available Bydureon 2 mg/0.65 mL subcutane ous pen injector INJECT ONE SYRINGE SUBCUTAN EOUSLY ONCE A WEEK 08/26 completed Not Available Not Available Not Available Shingrix (PF) 50 mcg/0.5 mL intramusc ular suspensio n, kit 12/15 completed Not Available Not Available Not Available OneTouch Ultra Blue Test Strip USE STRIP TO CHECK GLUCOSE TWICE DAILY NEEDED 12/25 completed Not Available Not Available Not Available BD Veo Insulin Syringe Ultra-Fin e (half unit) 0.3 mL 31 gauge x USE 1 TWICE DAILY FOR INJECTIO NS active Not Available Not Available No t Available OneTouch Ultra2 Meter USE 1 TO CHECK GLUCOSE TWICE DAILY 08/28 completed Not Available Not Available Not Available Fluzone High-Dose (PF) 180 mcg/0.5 mL intramusc ular syringe PHARMACI ST ADMINIST ERED IMMUNIZA TION ADMINIST ERED AT TIME OF DISPENSI NG 07/17 completed Not Available Not Available Not Available Flublok Quad (PF) 180 mcg (45 mcg x 4)/0.5 mL IM syringe PHARMACI ST ADMINIST ERED IMMUNIZA TION ADMINIST ERED AT TIME OF DISPENSI NG 12/05 completed Not Available Not Available Not Available BinaxNOW COVID-19 Ag Self Test kit Use as Directed on the Package 08/28 completed Not Available Not Available Not Available Paxlovid 300 mg (150 mg x 2)-100 mg tablets in a dose pack 05/29 completed Not Available Not Available Not Available Paxlovid 150 mg-100 mg tablets in a dose pack (Renal Dose) Take 2 tablets twice a day by oral route for 5 days. 05/29 completed Pt GFR is 40 on 02/11, Pt to hold atorvast atin while taking paxlovid for 5 days may resume there after. Not Available Not Available Not Available Vitals Date Recorded Body mass index (BMI) Body height Heart rate Body temperature Body weight Systolic blood pressure Diastolic blood pressure Provider Name and Address Organization Details Last Updated DateTime 2 31.3 kg/m2 182.88 cm 88 /min 97.8 [degF] 177952. 84 g 150 mm[Hg] 90 mm[Hg] Not Available [facility] 3 00:58:13 Date Recorded Body mass index (BMI) Body height Heart rate Body temperature Body weight Systolic blood pressure Diastolic blood pressure Provider Name and Address Organization Details Last Updated DateTime 2 30.7 kg/m2 182.88 cm 87 /min 97.1 [degF] 941059. 88 g 124 mm[Hg] 74 mm[Hg] Not Available [facility] 3 00:58:14 Date Recorded Body height Body mass index (BMI) Body weight Body temperature Heart rate Systolic blood pressure Diastolic blood pressure Provider Name and Address Organization Details Last Updated DateTime 3 182.88 cm 30.5 kg/m2 608967. 28 g 97.2 [degF] 109 /min 120 mm[Hg] 74 mm[Hg] LAMIN Torrez [facility] [employer] 3 15:02:23 Date Recorded Body height Body mass index (BMI) Body weight Body temperature Heart rate Oxygen saturation Oxygen saturation in Arterial blood by Pulse oximetry Systolic blood pressure Diastolic blood pressure Provider Name and Address Organization Details Last Updated DateTime 3 182.88 cm 30.8 kg/m2 014291. 47 g 98.1 [degF] 101 /min 98 % 98 % 146 mm[Hg] 72 mm[Hg] Meeta Posada RN [facility] [employer] 3 14:48:20 Date Recorded Body height Body mass index (BMI) Body weight Body temperature Heart rate Systolic blood pressure Diastolic blood pressure Provider Name and Address Organization Details Last Updated DateTime 3 182.88 cm 30.7 kg/m2 990328. 88 g 97.2 [degF] 102 /min 128 mm[Hg] 76 mm[Hg] Mita LAMIN [place] [facility] [employer] [facility] 15:37:28 Social History Question Answer Notes LastModified by Organization Details LastModified Time Tobacco Smoking Status Former Smoker quit 2009 KeshaCELINA Hernandez, [place] [facility] [employer] [facility] 08/27/2023 15:14:30 Do You Have An Advance Directive? No [id number] Information not available 11/21/2022 What Is Your Level Of Alcohol Consumption? Occasional [id number].217 [id number] Information not available 11/21/2022 Are You Blind Or Do You Have Difficulty Seeing? No [email or web address] Information not available 08/27/2023 What Is Your Level Of Caffeine Consumption? Occasional [id number].035 [id number] Information not available 11/21/2022 How Much Tobacco Do You Chew? 1/day Occasionally [id number] Information not available 11/21/2022 In The 14 Days Before Symptom Onset, Have You Had Close Contact With A Laboratory-conf irmed COVID-19 While That Case Was Ill? No [email or web address] Information not available 08/27/2023 In The 14 Days Before Symptom Onset, Have You Had Close Contact With A Person Who Is Under Investigation For COVID-19 While That Person Was Ill? No [email or web address] Information not available 08/27/2023 Are You Deaf Or Do You Have Serious Difficulty Hearing? No [email or web address] Information not available 08/27/2023 What Type Of Diet Are You Following? REGULAR [id number] Information not available 11/21/2022 Which Illicit Or Recreational Drugs Have You Used? None [email or web address] Information not available 08/27/2023 Do You Or Have You Ever Used E-cigarettes Or Vape? Never Used Electronic Cigarettes [email or web address] Information not available 08/27/2023 What Is The Highest Grade Or Level Of School You Have Completed Or The Highest Degree You Have Received? [id number] [email or web address] Information not available 08/27/2023 What Is Your Occupation? Retired [email or web address] Information not available 08/27/2023 Have There Been Any Changes To Your Family Or Social Situation? No [email or web address] Information not available 08/27/2023 What Is The Fluoride Status Of Your Home? Unknown [email or web address] Information not available 08/27/2023 When Did You Quit Smoking? 11-15yearssinkarlydaniel cabrera [email or web address] Information not available 08/27/2023 Do You Use Insect Repellent Routinely? No [email or web address] Information not available 08/27/2023 Where Do You Live? SingleLevelHouse [email or web address] Information not available 08/27/2023 Do You Have A Medical Power Of Gospel Worker? No [email or web address] Information not available 08/27/2023 What Was The Date Of Your Most Recent Tobacco Screening? 08/27/2023 [email or web address] Information not available 08/27/2023 Have You Ever Been Counseled For Unhealthy Alcohol Use? No [email or web address] Information not available 08/27/2023 Do You Have Any Pets? No [email or web address] Information not available 08/27/2023 What Is Your Relationship Status? [id number] Information not available 11/21/2022 Do You Use Your Seat Belt Or Car Seat Routinely? Yes [email or web address] Information not available 08/27/2023 Do You Have Smoke And Carbon Monoxide Detectors In Your Home? Yes [email or web address] Information not available 08/27/2023 At What Age Did You Start Smoking Tobacco? 15 [email or web address] Information not available 08/27/2023 Are You Passively Exposed To Smoke? No Information not available 08/27/2023 Do You Or Have You Ever Used Smokeless Tobacco? Currently Chews Tobacco [id number].265 [id number] Information not available 11/21/2022 Are There Any Smokers In Your House? No [email or web address] Information not available 08/27/2023 How Much Tobacco Do You Smoke? No [id number] Information not available 11/21/2022 What Types Of Sporting Activities Do You Participate In? None [email or web address] Information not available 08/27/2023 Do You Feel Stressed (tense, Restless, Nervous, Or Anxious, Or Unable To Sleep At Night)? [id number] [email or web address] Information not available 08/27/2023 Do You Use Any Illicit Or Recreational Drugs? No [email or web address] Information not available 08/27/2023 Do You Use Sunscreen Routinely? No [email or web address] Information not available 08/27/2023 Have You Recently Traveled Abroad? No [email or web address] Information not available 08/27/2023 Do You Have Any Dietary Restrictions? No [email or web address] Information not available 08/27/2023 Do You Or Have You Ever Used Any Other Forms Of Tobacco Or Nicotine? No [email or web address] Information not available 08/27/2023 Sex: Male Functional Status Question Answer Note LastModified by Organizat ion Details LastModified Time Do you have difficulty walking or climbing stairs? No [email or web address] Information not available 08/27/2023 Do you have transportation difficulties? No Information not available 08/27/2023 Are you able to walk? YESWOREST [email or web address] Information not available 08/27/2023 Do you have difficulty doing errands alone? No [email or web address] Information not available 08/27/2023 Are you able to care for yourself? Yes [email or web address] Information n ot available 08/27/2023 Do you have difficulty dressing or bathing? No [email or web address] Information not available 08/27/2023 What is your exercise level? Moderate [id number] Information not available 11/21/2022 Mental Status Question Answer Note LastModified by Organization D etails LastModified Time Do you have difficulty concentrating, remembering or making decisions? No [email or web address] Information no t available 08/27/2023 Family History Relationship Description Onset Age of this Age Resolved Age Notes LastModified by Organization Details LastModified Time Maternal Grandmother Diabetes mellitus [id number] Not available 11/21/2022 00:57:27 Father Arthritis [email or web address] Not avail able 08/27/2023 15:14:24 Father Heart disease [id number] Not available 11/21/2022 00:57:27 Mother Hypertensive disorder [id number] Not available 11/21/2022 00:57:27 Mother Cerebrovascu lar accident Not available 1 10/28/2022 15:14:24 Medical History Condition Response NERVE DISEASE Y BLINDNESS N RHEUMATIC FEVER N KIDNEY STONES N BLADDER PROBLEMS N OTHER # 1 N POLIO N LUNG DISEASE/DISORDER N RADIATION / CHEMOTHERAPY N COPD Y Other # 2 N BLOOD DISEASES N SURGERY N EAR OR HEARING PROBLEMS N MUMPS N BOWEL PROBLEMS N DEPRESSION (INCLUDING POST ) Y STROKE/TIA N ULCERS N BENIGN PROSTATIC HYPERPLASIA N MEASLES N MYOCARDIAL INFARCTION N OBESITY N GERD/NAUSEA N ANEURYSM N URINARY/BLADDER/KIDNEY PROBLEMS N INPATIENT PSYCH CARE N CORONARY ARTERY DISEASE (CAD) N ADDICTION CONCERNS N Impotence N ENDOMETRIOSIS N USE OF BLOOD THINNERS N SKIN PROBLEMS N GASTROINTESTINAL DISORDER N PERIPHERAL VASCULAR DISEASE N MUSCLE,JOINT OR BONE PROBLEMS N GASTROINTESTINAL BLEEDING N BLOOD CLOTS N ASTHMA N CATARACTS N ERECTILE DYSFUNCTION N VARICOSITIES N GI PROBLEMS N Low Testosterone N INFERTILITY N AIDS/HIV N LIVER DISEASE N MALE HYPOGONADISM N HYPERTENSION Y Deficiency N ANXIETY DISORDER Y BLOOD TRANSFUSION N ANEMIA/BLOOD DISORDER N CHRONIC EAR INFECTIONS N BRONCHITIS N TUBERCULOSIS N GLAUCOMA N FOOT PROBLEM N DIVERTICULITIS N SLEEP APNEA N CHICKENPOX N INFECTIOUS DISEASE N PROSTATE N HEART ARRHYTHMIA N INSOMNIA N HIGH CHOLESTEROL / HYPERLIPIDEMIA Y EYE PROBLEMS N HYPERTHYROIDISM N NEUROLOGICAL PROBLEMS N EDEMA N CHRONIC PAIN SYNDROME N HYPOTHYROIDISM Y CONSTIPATION N CAROTID BLOCKAGE N BACK / NECK PROBLEMS N HAVE YOU BEEN HOSPITALIZED OR SEEN IN [facility] IN THE PAST YEAR ? N ATHEROSCLEROSIS Y BREAST PROBLEMS N DIALYSIS N ECZEMA N OSTEOPOROSIS N ARTHRITIS N APPENDICITIS N DIABETES, TYPE Y BAD TEETH N ENT N HEARTBURN / REFLUX N AUTISM SPECTRUM DISORDER (ASD) N HEPATITIS / LIVER DISEASE N PULMONARY DISEASE N GOUT N SLEEP DISORDER N ALZHEIMER'S DISEASE N Brain Problems N DEMENTIA N HERPES N SEIZURES/EPILEPSY N HEADACHES/MIGRAINES N VASCULAR DISEASE N PACEMAKER N Blood Disorder N DIZZINESS Y HEART DISEASE/HEART PROBLEMS N KIDNEY DISEASE N MULTIPLE SCLEROSIS N CANCER: SPECIFY N CARDIAC ARRHYTHMIA N ANESTHESIA COMPLICATIONS N ATRIAL FIBRILLATION N Gall Stones N PULMONARY EMBOLISM N AUTOIMMUNE DISEASE N Immunizations Vaccine Type Date Status Note Provider Nam e and Address Organization Details Recorded Time COVID-19, mRNA, LNP-S, PF, 100 mcg/0.5mL dose or 50 mcg/0.25mL dose 3 completed Not Available [facility] 09/09/2023 08:05:58 Influenza, high-dose, quadrivalent, PF 3 completed Not Available [facility] 09/09/2023 08:05:58 RSV, recombinant, protein subunit RSVpreF, adjuvant reconstituted, 0.5 mL, PF 3 completed Not Available [facility] 09/09/2023 08:05:58 RSV, recombinant, protein subunit RSVpreF, adjuvant reconstituted, 0.5 mL, PF 3 completed Not Available [facility] 09/09/2023 08:05:58 Influenza, split virus, trivalent, preservative 3 completed Not Available [facility] 09/09/2023 08:05:58 COVID-19, mRNA, LNP-S, PF, 30 mcg/0.3 mL dose 1 completed Not Available [facility] 09/09/2023 08:05:58 COVID-19, mRNA, LNP-S, PF, 30 mcg/0.3 mL dose 1 completed Not Available [facility] 09/09/2023 08:05:58 pneumococcal polysaccharide PPV23 0 completed Not Available [facility] 09/09/2023 08:05:58 Influenza, high-dose, trivalent, PF 0 completed Not Available [facility] 09/09/2023 08:05:58 Influenza, high-dose, trivalent, PF 9 completed Not Available [facility] 09/09/2023 08:05:58 Pneumococcal conjugate PCV 13 9 completed Not Available [facility] 09/09/2023 08:05:58 zoster recombinant 8 completed Not Available [facility] 09/09/2023 08:05:58 influenza, unspecified formulation 8 completed Not Available [facility] 09/09/2023 08:05:58 Influenza, high-dose, trivalent, PF 7 completed Not Available [facility] 09/09/2023 08:05:58 Influenza, split virus, trivalent, preservative 6 completed Not Available [facility] 09/09/2023 08:05:58 Influenza, high-dose, quadrivalent, PF 2 completed Not Available [facility] 09/09/2023 08:05:58 COVID-19, mRNA, LNP-S, PF, 30 mcg/0.3 mL dose 2 completed Not Available [facility] 09/09/2023 08:05:58 Influenza, high-dose, quadrivalent, PF 1 completed Not Available [facility] 09/09/2023 08:05:58 COVID-19, mRNA, LNP-S, PF, 30 mcg/0.3 mL dose 1 completed Not Available [facility] 09/09/2023 08:05:58 Influenza, split virus, quadrivalent, PF 5 completed Not Available [facility] 09/09/2023 08:05:58 Influenza, split virus, trivalent, PF 4 completed Not Available [facility] 09/09/2023 08:05:58 Past Encounters Encounter ID Performer Location Encounter Start Date Encounter Closed Date Diagnosis/Indication Diagnosis SNOMED-CT Code Diagnosis ICD10 Code Diagnosis Note [id number] [facility] [address] [address] 12/05/2020 00:00:00 12/24/2020 11:58:51 [id number] [facility] [address] [address] 1 02/27/2021 00:00:00 02/27/2021 23:24:20 [id number] [facility] [address] [address] 06/26/2021 00:00:00 06/26/2021 15:09:24 [id number] [facility] [address] [address] 10/30/2021 00:00:00 11/26/2021 21:38:40 [id number] [facility] [address] [address] 02/12/2022 00:00:00 02/19/2022 16:38:42 [id number] [facility] [address] [address] 05/29/2022 00:00:00 06/10/2022 21:54:11 [id number] [facility] [address] [address] 08/28/2022 00:00:00 08/29/2022 08:38:25 [id number] Mahesh Estrada MD [facility] Internal [facility] [address] [address] 12/25/2022 14:49:09 12/25/2022 16:06:00 Essential hypertension 75536069 I10 Type 2 abdirizak betes mellitus without complication 204157305 E11.9 Hypothyroidism 24998147 E03.9 Chronic ob structive pulmonary disease 86651687 J44.9 M ni re's disease 22466199 H81.03 Neuropathy 532642597 G62 .9 Pure hypercholesterolemia 447122701 E78.00 [id number] Mahesh Estrada MD [facility] Internal Med [facility] [address] [address] 04/23/2023 14:38:54 04/23/2023 15:39:56 Hypothyroidism 01554283 E03.9 Chronic ob structive pulmonary disease 26891829 J44.9 Essential hypertension 06534484 I10 M ni re's disease 04250994 H81.03 Pure hypercholesterolemia 113828726 E78.00 Type 2 abdirizak betes mellitus without complication 127532437 E11.9 [id number] Mahesh Estrada MD [facility] Internal Med [facility] [address] [address] 08/27/2023 15:13:25 08/27/2023 16:48:49 Abdominal pain 67631872 R10.9 Hypothyroidism 80331995 E03.9 Chronic ob structive pulmonary disease 63104539 J44.9 Essential hypertension 74730346 I10 M ni re's disease 75717050 H81.03 Neuropathy 478074654 G62 .9 Type 2 abdirizak betes mellitus without complication 433777826 E11.9 Pure hypercholesterolemia 602917035 E78.00 Health Concerns Section Related Observation LastModified by Organization Detai ls LastModified Time None Recorded Concern Status LastModified by Organization Details LastModified Time None Recorded Advance Directives Directive N: Payers Encounter Date Sequence Insurance Name Policy Number Policy Paige Covered Member ID Paige Member ID Guarantor Name 12/25/2022 1 MEDICARE-ID (MEDICARE) Neena E Bettorf [id number] 3 Neena E Bettorf 12/25/2022 2 [employer] Neena E Bettorf [id number] Neena E Bettorf 04/23/2023 1 MEDICARE-ID (MEDICARE) Neena E Bettorf [id number] Neena E Bettorf 04/23/2023 2 [employer] Neena E Bettorf [id number] Neena E Bettorf 08/27/2023 1 MEDICARE-ID (MEDICARE) Neena E Bettorf [id number] 3 Neena E Bettorf 08/27/2023 2 [employer] Neena E Bettorf [id number] Neena E Bettorf Notes Date Note Type Note Provider Name and Address Organization Details Recorded Time 3 text/html Hypertension no headache no chest pain.Diabetes no polyphagia polydipsia or hypoglycemiaHypothyroid he does have some fatigue but no heat or cold intoleranceCOPD denies cough or wheezingMany years he struggles with this and still has bouts of dizziness but stableNeuropathy there has not been any new problemsDyslipidemia tries to avoid red meat Mahesh Estrada MD [address], [facility] [address], [place], [address], [employer] 01/27/2023 17:59:10 3 text/html Hypertension no headache no chest pain.Diabetes no polyphagia polydipsia or hypoglycemiaHypothyroid he does have some fatigue but no heat or cold intoleranceCOPD denies cough or wheezingMany years he struggles with this and still has bouts of dizziness but stableNeuropathy there has not been any new problemsDysbon [facility] tries to avoid red meat Mahesh Estrada MD [address], [place], [address], [employer] 04/28/2023 21:41:18 3 text/html Hypertension no headache no chest pain.Diabetes no polyphagia polydipsia or hypoglycemiaHypothyroid he does have some fatigue but no heat or cold intoleranceCOPD denies cough or wheezingMany years he struggles with this and still has bouts of dizziness but stableNeuropathy there has not been any new problemsDyslipidemia tries to avoid red meatLower abdominal crampy pain from time to time for about a week thinks he might had 1 black stool denies using any Pepto-Bismol Mahesh Estrada MD [address] [facility], [facility] [address], [place], [address], [place] [facility] 08/30/2023 22:19:58
== END 2024-11-16 12:17 | disposition home or self-care (01) ==
PROVIDERS: PCP Internal Medicine; Visit Provider Internal Medicine
DX: M47.812 Spondylosis without myelopathy or radiculopathy, cervical region (principal); R90.82 White matter disease, unspecified; G37.2 Central pontine myelinolysis
CPT/HCPCS: 70551; 72141

== ENCOUNTER 2025-05-14 12:26 | Outpatient (CLI) | payer MEDICARE, OTHER, SELFPAY ==
--- NOTE | ~2025-05-14 | US_ITS ---
US renal BI 05/14/2025 12:50 Procedure: Realtime transabdominal ultrasound of the kidneys and bladder. Indication: Abnormal renal labs Comparison: No prior studies for comparison. Findings: Renal echotexture is normal bilaterally without hydronephrosis, contour deforming mass or renal calculus. The right kidney measures 8.1 cm and left kidney measures 10 cm. Bladder within normal limits. Impression: 1: Unremarkable renal ultrasound. No stones, masses or hydronephrosis. Reviewed, dictated and finalized at location O. Impression: 1: Unremarkable renal ultrasound. No stones, masses or hydronephrosis.
== END 2025-05-14 12:27 | disposition home or self-care (01) ==
LOC: MICIMG 12:27
PROVIDERS: PCP Internal Medicine; Visit Provider Internal Medicine
DX: R89.9 Unspecified abnormal finding in specimens from other organs, systems and tissues (principal)
CPT/HCPCS: 76770